=== PATIENT | female | born 1940 | race Caucasian/White ===

== ENCOUNTER 2018-03-13 06:07 | Inpatient (IN) ==
--- NOTE | 2018-03-13 06:32 | ED ---
HPI General Chief Complaint: Shortness of Breath/Dyspnea Stated Complaint: SOB Time Seen by Provider: 03/13/18 06:27 Source: patient and EMS Mode of arrival: EMS History of Present Illness Patient has a history of COPD she is on home oxygen she also has HFA's at home she is also been not taking her medications which she reports COPD and she also does not have any syringes she give herself vitamin B IM shots which she gives herself . She comes in respiratory distress the setting increased work of respiration diffuse wheeze. Progressively getting worse over the last few days not responding to her home HFA inhalers. pt has a slight strange affect and is smiling through her entire HPI ROS Complaint: shortness of breath Onset (ago): day(s) Related Data Home Medications Medication Instructions Recorded Confirmed cyanocobalamin (vitamin B-12) 1,000 mcg IM Q1-3M 03/13/18 03/13/18 diltiazem HCl 30 mg PO QID 03/13/18 03/13/18 esomeprazole magnesium [Nexium] 40 mg PO DAILY 03/13/18 03/13/18 triamterene-hydrochlorothiazid 1 cap PO DAILY 03/13/18 03/13/18 Previous Rx's Medication Instructions Recorded ferrous sulfate [Iron (ferrous 325 mg PO BID 30 Days #60 tab 03/17/18 sulfate)] sennosides-docusate sodium [Colace 1 tab PO DAILY 30 Days tab 03/17/18 2-In-1] Allergies Allergy/AdvReac Type Severity Reaction Status Date / Time Sulfa (Sulfonamide AdvReac Intermediate Nausea/Vomi Verified 03/13/18 06:11 Antibiotics) ting Review of Systems ROS: all other systems reviewed are negative Respiratory Reports dyspnea and Reports wheezing [facility] Medical History Medical History Age related osteoporosis (Acute) COPD (chronic obstructive pulmonary disease) (Acute) GERD (gastroesophageal reflux disease) (Acute) Hypertension (Acute) Surgical History Surgical History Hx of tubal ligation (Acute) Family History Family History Father Diabetes Coronary artery disease Mother Coronary artery disease Social History Social History Substance History: No History of Abuse Second Hand Smoke Exposure: No Smoking Status: Current every day smoker Tobacco Type: Cigarettes How Often Do You Have a Drink Containing Alcohol: Never Recent Travel in [facility] within the Last 8 Weeks: No Recent Out of Country Travel within the Last 8 Weeks: No Immunization History Tetanus Immunization: Unsure Hx Influenza Vaccine This Season: No Exam Narrative Exam Narrative: GENERAL: Patient is mildly in respiratory distress although she is very pleasant and smiling SKIN: Warm and dry. HEAD: Atraumatic. Normocephalic. EYES: Pupils equal and round. No scleral icterus. No injection or drainage. ENT: No nasal bleeding or discharge. Mucous membranes pink and moist. NECK: Trachea midline. No JVD. CARDIOVASCULAR: Regular rate and rhythm. RESPIRATORY: No accessory muscle use. Diffuse wheeze in both lungs bilaterally expiratory bilaterally. GASTROINTESTINAL: Abdomen soft, non-tender, nondistended. Hepatic and splenic margins not palpable. MUSCULOSKELETAL: Extremities without clubbing, cyanosis, or edema. No obvious deformities. NEUROLOGICAL: Awake and alert. No obvious cranial nerve deficits. Motor grossly within normal limits. Five out of 5 muscle strength in the arms and legs. Normal speech. PSYCHIATRIC: Appropriate mood and affect; insight and judgment normal. Course Initial Documented Vital Signs Temperature 98.4 F 03/13/18 06:11 Pulse Rate 97 H 03/13/18 06:11 Respiratory Rate 20 03/13/18 06:11 Blood Pressure 149/70 H 03/13/18 06:11 Pulse Oximetry 100 03/13/18 06:11 Last Documented Vital Signs Temperature 97.7 F 03/17/18 11:00 Pulse Rate 70 03/17/18 13:00 Respiratory Rate 22 03/17/18 11:00 Blood Pressure 162/78 H 03/17/18 11:00 Pulse Oximetry 97 03/17/18 11:00 Critical Care Time Critical Care Time: Yes Total Critical Care Time: 35 Attestation: Aggregate critical care time was 35 minutes. Time to perform other separately billable procedures was not included in the critical care time. My time did not include minutes spent treating any other patients simultaneously or on activities that did not directly contribute to the patient's treatment. The services I, Dr. Santos, provided to this patient were to treat and/or prevent clinically significant deterioration that could result in: cardiac arrest, respiratory failure,increased morbidity. I provided critical care services requiring my management, as noted below: Chart data review, documentation time, medication orders and management, vital sign assessments/reviewing monitor data, ordering and reviewing lab tests, ordering and interpreting/reviewing x-rays and diagnostic studies, care of the patient and discussion of the patient with the admitting physicians. Medical Decision Making MDM Narrative Medical decision making narrative: 0722: Received sign out from Dr. Gomez. Patient resting in stretcher, states that she is breathing better with breathing treatments. No chest pain, lung exam-no wheezing. Awaiting lab and CXR results. CXR: Slight cardiomegaly not significantly changed. ECG: SR, rate 79, normal axis and intervals, STD in V4-V6, TWI aVL, V1, V2. Rectal: Brown stool, trace + hemoccult, patient reports having black stools for approx 1 week. She will be admitted and transfused. Troponin elevated, Hgb/HCT decreased. Troponemia likely 2/2 anemia. Admit team will trend troponin. Differential Diagnosis Differential Diagnosis: Colitis versus COPD exacerbation versus pneumonia versus pneumothorax versus mucus plugging versus bronchiectasis versus other Lab Data Result diagrams: 03/17/18 05:07 03/17/18 05:07 Lab Results 03/13/18 03/13/18 03/13/18 Range/Units 07:07 07:07 07:07 WBC 9.7 (4.0-11.0) th/mm3 RBC 3.26 L (4.00-5.30) mil/mm3 Hgb 5.3 L* (11.6-15.3) gm/dL Hct 18.9 L* (35.0-46.0) % MCV 57.9 L (80.0-100.0) fL MCH 16.2 L (27.0-34.0) pg MCHC 27.9 L (32.0-36.0) % RDW 21.1 H (11.6-17.2) % Plt Count 316 (150-450) th/mm3 MPV 8.9 (7.0-11.0) fL Prelim Diff (Auto) Neut % (Auto) 79.2 H (16.0-70.0) % Lymph % (Auto) 9.8 (9.0-44.0) % [place] % (Auto) 7.2 (0.0-8.0) % Eos % (Auto) 2.4 (0.0-4.0) % Baso % (Auto) 1.4 (0.0-2.0) % Neut # (Auto) 7.7 (1.8-7.7) th/mm3 Lymph # (Auto) 0.9 L (1.0-4.8) th/mm3 [place] # (Auto) 0.7 (0.0-0.9) th/mm3 Eos # (Auto) 0.2 (0.0-0.4) th/mm3 Baso # (Auto) 0.1 (0.0-0.2) th/mm3 WBC Differential . Diff Scan Differential Comment Auto diff final Platelet Estimate (Normal) Platelet Morphology (Normal) Dimorphic RBCs (None) Basophilic Stippling (None) Ovalocytes (None) Acanthocytes (Spur) (None) Sodium 144 (136-145) meq/L Potassium 3.7 (3.5-5.1) meq/L Chloride 113 H (98-107) meq/L Carbon Dioxide 23.0 (21.0-32.0) meq/L Anion Gap 8 (5-15) meq/L BUN 15 (7-18) mg/dL Creatinine 0.63 (0.50-1.00) mg/dL Estimated GFR Greater than 89 (>89) mL/min Random Glucose 106 (74-106) mg/dL Calcium 7.8 L (8.5-10.1) mg/dL Phosphorus (2.5-4.9) mg/dL Magnesium (1.5-2.5) mg/dL Iron (50-170) mcg/dL TIBC (250-450) mcg/dL % Saturation (20-50) % Ferritin (8-252) ng/mL Total Bilirubin 0.2 (0.2-1.0) mg/dL AST 15 (15-37) U/L ALT 11 (10-53) U/L Alkaline Phosphatase 88 (45-117) U/L Total Creatine Kinase (26-192) U/L Troponin I 0.37 H (0.02-0.05) ng/mL B-Natriuretic Peptide 813 H (0-100) pg/mL Total Protein 6.1 L (6.4-8.2) g/dL Albumin 2.7 L (3.4-5.0) g/dL Blood Type Blood Type Recheck Antibody Screen MTS Gel Crossmatch 03/13/18 03/13/18 03/13/18 Range/Units 07:07 07:07 08:12 WBC (4.0-11.0) th/mm3 RBC (4.00-5.30) mil/mm3 Hgb (11.6-15.3) gm/dL Hct (35.0-46.0) % MCV (80.0-100.0) fL MCH (27.0-34.0) pg MCHC (32.0-36.0) % RDW (11.6-17.2) % Plt Count (150-450) th/mm3 MPV (7.0-11.0) fL Prelim Diff (Auto) Neut % (Auto) (16.0-70.0) % Lymph % (Auto) (9.0-44.0) % [place] % (Auto) (0.0-8.0) % Eos % (Auto) (0.0-4.0) % Baso % (Auto) (0.0-2.0) % Neut # (Auto) (1.8-7.7) th/mm3 Lymph # (Auto) (1.0-4.8) th/mm3 [place] # (Auto) (0.0-0.9) th/mm3 Eos # (Auto) (0.0-0.4) th/mm3 Baso # (Auto) (0.0-0.2) th/mm3 WBC Differential Diff Scan Differential Comment Platelet Estimate (Normal) Platelet Morphology (Normal) Dimorphic RBCs (None) Basophilic Stippling (None) Ovalocytes (None) Acanthocytes (Spur) (None) Sodium (136-145) meq/L Potassium (3.5-5.1) meq/L Chloride (98-107) meq/L Carbon Dioxide (21.0-32.0) meq/L Anion Gap (5-15) meq/L BUN (7-18) mg/dL Creatinine (0.50-1.00) mg/dL Estimated GFR (>89) mL/min Random Glucose (74-106) mg/dL Calcium (8.5-10.1) mg/dL Phosphorus (2.5-4.9) mg/dL Magnesium (1.5-2.5) mg/dL Iron (50-170) mcg/dL TIBC (250-450) mcg/dL % Saturation (20-50) % Ferritin 2 L (8-252) ng/mL Total Bilirubin (0.2-1.0) mg/dL AST (15-37) U/L ALT (10-53) U/L Alkaline Phosphatase (45-117) U/L Total Creatine Kinase 67 (26-192) U/L Troponin I (0.02-0.05) ng/mL B-Natriuretic Peptide (0-100) pg/mL Total Protein (6.4-8.2) g/dL Albumin (3.4-5.0) g/dL Blood Type O Positive Blood Type Recheck Required Antibody Screen Negative MTS Gel Crossmatch 03/13/18 03/13/18 03/14/18 Range/Units 11:28 14:10 04:42 WBC 11.5 H (4.0-11.0) th/mm3 RBC 4.05 (4.00-5.30) mil/mm3 Hgb 8.3 L D (11.6-15.3) gm/dL Hct 26.6 L (35.0-46.0) % MCV 65.8 L D (80.0-100.0) fL MCH 20.4 L (27.0-34.0) pg MCHC 31.0 L (32.0-36.0) % RDW 31.1 H D (11.6-17.2) % Plt Count 302 (150-450) th/mm3 MPV 8.9 (7.0-11.0) fL Prelim Diff (Auto) Slide review pending Neut % (Auto) 72.9 H (16.0-70.0) % Lymph % (Auto) 15.0 (9.0-44.0) % [place] % (Auto) 8.4 H (0.0-8.0) % Eos % (Auto) 2.9 (0.0-4.0) % Baso % (Auto) 0.8 (0.0-2.0) % Neut # (Auto) 8.4 H (1.8-7.7) th/mm3 Lymph # (Auto) 1.7 (1.0-4.8) th/mm3 [place] # (Auto) 1.0 H (0.0-0.9) th/mm3 Eos # (Auto) 0.3 (0.0-0.4) th/mm3 Baso # (Auto) 0.1 (0.0-0.2) th/mm3 WBC Differential . Diff Scan Auto diff confirmed Differential Comment . Platelet Estimate Normal (Normal) Platelet Morphology Enlarged H (Normal) Dimorphic RBCs Present H (None) Basophilic Stippling Heavy H (None) Ovalocytes (None) Acanthocytes (Spur) (None) Sodium (136-145) meq/L Potassium (3.5-5.1) meq/L Chloride (98-107) meq/L Carbon Dioxide (21.0-32.0) meq/L Anion Gap (5-15) meq/L BUN (7-18) mg/dL Creatinine (0.50-1.00) mg/dL Estimated GFR (>89) mL/min Random Glucose (74-106) mg/dL Calcium (8.5-10.1) mg/dL Phosphorus (2.5-4.9) mg/dL Magnesium (1.5-2.5) mg/dL Iron (50-170) mcg/dL TIBC (250-450) mcg/dL % Saturation (20-50) % Ferritin (8-252) ng/mL Total Bilirubin (0.2-1.0) mg/dL AST (15-37) U/L ALT (10-53) U/L Alkaline Phosphatase (45-117) U/L Total Creatine Kinase 92 (26-192) U/L Troponin I 0.41 H (0.02-0.05) ng/mL B-Natriuretic Peptide (0-100) pg/mL Total Protein (6.4-8.2) g/dL Albumin (3.4-5.0) g/dL Blood Type Blood Type Recheck Antibody Screen MTS Gel Crossmatch See Detail 03/14/18 03/14/18 03/14/18 Range/Units 04:42 14:18 22:09 WBC (4.0-11.0) th/mm3 RBC (4.00-5.30) mil/mm3 Hgb 8.3 L 7.5 L (11.6-15.3) gm/dL Hct (35.0-46.0) % MCV (80.0-100.0) fL MCH (27.0-34.0) pg MCHC (32.0-36.0) % RDW (11.6-17.2) % Plt Count (150-450) th/mm3 MPV (7.0-11.0) fL Prelim Diff (Auto) Neut % (Auto) (16.0-70.0) % Lymph % (Auto) (9.0-44.0) % [place] % (Auto) (0.0-8.0) % Eos % (Auto) (0.0-4.0) % Baso % (Auto) (0.0-2.0) % Neut # (Auto) (1.8-7.7) th/mm3 Lymph # (Auto) (1.0-4.8) th/mm3 [place] # (Auto) (0.0-0.9) th/mm3 Eos # (Auto) (0.0-0.4) th/mm3 Baso # (Auto) (0.0-0.2) th/mm3 WBC Differential Diff Scan Differential Comment Platelet Estimate (Normal) Platelet Morphology (Normal) Dimorphic RBCs (None) Basophilic Stippling (None) Ovalocytes (None) Acanthocytes (Spur) (None) Sodium 139 (136-145) meq/L Potassium 3.9 (3.5-5.1) meq/L Chloride 103 D (98-107) meq/L Carbon Dioxide 30.2 (21.0-32.0) meq/L Anion Gap 6 (5-15) meq/L BUN 14 (7-18) mg/dL Creatinine 0.69 (0.50-1.00) mg/dL Estimated GFR 82 L (>89) mL/min Random Glucose 82 (74-106) mg/dL Calcium 8.5 (8.5-10.1) mg/dL Phosphorus (2.5-4.9) mg/dL Magnesium (1.5-2.5) mg/dL Iron (50-170) mcg/dL TIBC (250-450) mcg/dL % Saturation (20-50) % Ferritin (8-252) ng/mL Total Bilirubin 0.8 (0.2-1.0) mg/dL AST 14 L (15-37) U/L ALT 14 (10-53) U/L Alkaline Phosphatase 81 (45-117) U/L Total Creatine Kinase (26-192) U/L Troponin I (0.02-0.05) ng/mL B-Natriuretic Peptide (0-100) pg/mL Total Protein 6.2 L (6.4-8.2) g/dL Albumin 2.8 L (3.4-5.0) g/dL Blood Type Blood Type Recheck Antibody Screen MTS Gel Crossmatch 03/15/18 03/15/18 03/15/18 Range/Units 02:12 11:51 12:09 WBC (4.0-11.0) th/mm3 RBC (4.00-5.30) mil/mm3 Hgb 7.6 L 8.4 L (11.6-15.3) gm/dL Hct (35.0-46.0) % MCV (80.0-100.0) fL MCH (27.0-34.0) pg MCHC (32.0-36.0) % RDW (11.6-17.2) % Plt Count (150-450) th/mm3 MPV (7.0-11.0) fL Prelim Diff (Auto) Neut % (Auto) (16.0-70.0) % Lymph % (Auto) (9.0-44.0) % [place] % (Auto) (0.0-8.0) % Eos % (Auto) (0.0-4.0) % Baso % (Auto) (0.0-2.0) % Neut # (Auto) (1.8-7.7) th/mm3 Lymph # (Auto) (1.0-4.8) th/mm3 [place] # (Auto) (0.0-0.9) th/mm3 Eos # (Auto) (0.0-0.4) th/mm3 Baso # (Auto) (0.0-0.2) th/mm3 WBC Differential Diff Scan Differential Comment Platelet Estimate (Normal) Platelet Morphology (Normal) Dimorphic RBCs (None) Basophilic Stippling (None) Ovalocytes (None) Acanthocytes (Spur) (None) Sodium (136-145) meq/L Potassium (3.5-5.1) meq/L Chloride (98-107) meq/L Carbon Dioxide (21.0-32.0) meq/L Anion Gap (5-15) meq/L BUN (7-18) mg/dL Creatinine (0.50-1.00) mg/dL Estimated GFR (>89) mL/min Random Glucose (74-106) mg/dL Calcium (8.5-10.1) mg/dL Phosphorus (2.5-4.9) mg/dL Magnesium (1.5-2.5) mg/dL Iron (50-170) mcg/dL TIBC (250-450) mcg/dL % Saturation (20-50) % Ferritin (8-252) ng/mL Total Bilirubin (0.2-1.0) mg/dL AST (15-37) U/L ALT (10-53) U/L Alkaline Phosphatase (45-117) U/L Total Creatine Kinase (26-192) U/L Troponin I (0.02-0.05) ng/mL B-Natriuretic Peptide (0-100) pg/mL Total Protein (6.4-8.2) g/dL Albumin (3.4-5.0) g/dL Blood Type Blood Type Recheck Antibody Screen MTS Gel Crossmatch See Detail 03/16/18 03/16/18 03/17/18 Range/Units 05:44 05:44 05:07 WBC 7.9 6.8 (4.0-11.0) th/mm3 RBC 4.35 4.29 (4.00-5.30) mil/mm3 Hgb 9.7 L 9.6 L (11.6-15.3) gm/dL Hct 30.7 L 30.6 L (35.0-46.0) % MCV 70.6 L D 71.4 L (80.0-100.0) fL MCH 22.2 L 22.3 L (27.0-34.0) pg MCHC 31.5 L 31.2 L (32.0-36.0) % RDW 33.0 H 33.8 H (11.6-17.2) % Plt Count 255 296 (150-450) th/mm3 MPV 8.9 9.4 (7.0-11.0) fL Prelim Diff (Auto) Slide review pending Slide review pending Neut % (Auto) 66.6 60.0 (16.0-70.0) % Lymph % (Auto) 17.1 22.1 (9.0-44.0) % [place] % (Auto) 9.7 H 10.7 H (0.0-8.0) % Eos % (Auto) 5.7 H 5.6 H (0.0-4.0) % Baso % (Auto) 0.9 1.6 (0.0-2.0) % Neut # (Auto) 5.3 4.1 (1.8-7.7) th/mm3 Lymph # (Auto) 1.4 1.5 (1.0-4.8) th/mm3 [place] # (Auto) 0.8 0.7 (0.0-0.9) th/mm3 Eos # (Auto) 0.5 H 0.4 (0.0-0.4) th/mm3 Baso # (Auto) 0.1 0.1 (0.0-0.2) th/mm3 WBC Differential . . Diff Scan Auto diff confirmed Auto diff confirmed Differential Comment . . Platelet Estimate Normal Normal (Normal) Platelet Morphology Enlarged H Enlarged H (Normal) Dimorphic RBCs Present H (None) Basophilic Stippling (None) Ovalocytes 1+ H 1+ H (None) Acanthocytes (Spur) Occ H Occ H (None) Sodium 141 (136-145) meq/L Potassium 3.8 (3.5-5.1) meq/L Chloride 102 (98-107) meq/L Carbon Dioxide 31.8 (21.0-32.0) meq/L Anion Gap 7 (5-15) meq/L BUN 12 (7-18) mg/dL Creatinine 0.59 (0.50-1.00) mg/dL Estimated GFR Greater than 89 (>89) mL/min Random Glucose 68 L (74-106) mg/dL Calcium 8.2 L (8.5-10.1) mg/dL Phosphorus 3.2 (2.5-4.9) mg/dL Magnesium 2.0 (1.5-2.5) mg/dL Iron (50-170) mcg/dL TIBC (250-450) mcg/dL % Saturation (20-50) % Ferritin (8-252) ng/mL Total Bilirubin (0.2-1.0) mg/dL AST (15-37) U/L ALT (10-53) U/L Alkaline Phosphatase (45-117) U/L Total Creatine Kinase (26-192) U/L Troponin I (0.02-0.05) ng/mL B-Natriuretic Peptide (0-100) pg/mL Total Protein (6.4-8.2) g/dL Albumin 2.8 L (3.4-5.0) g/dL Blood Type Blood Type Recheck Antibody Screen MTS Gel Crossmatch 03/17/18 03/17/18 Range/Units 05:07 05:09 WBC (4.0-11.0) th/mm3 RBC (4.00-5.30) mil/mm3 Hgb (11.6-15.3) gm/dL Hct (35.0-46.0) % MCV (80.0-100.0) fL MCH (27.0-34.0) pg MCHC (32.0-36.0) % RDW (11.6-17.2) % Plt Count (150-450) th/mm3 MPV (7.0-11.0) fL Prelim Diff (Auto) Neut % (Auto) (16.0-70.0) % Lymph % (Auto) (9.0-44.0) % [place] % (Auto) (0.0-8.0) % Eos % (Auto) (0.0-4.0) % Baso % (Auto) (0.0-2.0) % Neut # (Auto) (1.8-7.7) th/mm3 Lymph # (Auto) (1.0-4.8) th/mm3 [place] # (Auto) (0.0-0.9) th/mm3 Eos # (Auto) (0.0-0.4) th/mm3 Baso # (Auto) (0.0-0.2) th/mm3 WBC Differential Diff Scan Differential Comment Platelet Estimate (Normal) Platelet Morphology (Normal) Dimorphic RBCs (None) Basophilic Stippling (None) Ovalocytes (None) Acanthocytes (Spur) (None) Sodium 141 (136-145) meq/L Potassium 4.0 (3.5-5.1) meq/L Chloride 103 (98-107) meq/L Carbon Dioxide 30.3 (21.0-32.0) meq/L Anion Gap 8 (5-15) meq/L BUN 14 (7-18) mg/dL Creatinine 0.84 (0.50-1.00) mg/dL Estimated GFR 66 L (>89) mL/min Random Glucose 75 (74-106) mg/dL Calcium 8.3 L (8.5-10.1) mg/dL Phosphorus 3.5 (2.5-4.9) mg/dL Magnesium 1.9 (1.5-2.5) mg/dL Iron 23 L (50-170) mcg/dL TIBC 370 (250-450) mcg/dL % Saturation 6.2 L (20-50) % Ferritin 29 (8-252) ng/mL Total Bilirubin (0.2-1.0) mg/dL AST (15-37) U/L ALT (10-53) U/L Alkaline Phosphatase (45-117) U/L Total Creatine Kinase (26-192) U/L Troponin I (0.02-0.05) ng/mL B-Natriuretic Peptide (0-100) pg/mL Total Protein (6.4-8.2) g/dL Albumin 2.9 L (3.4-5.0) g/dL Blood Type Blood Type Recheck Antibody Screen MTS Gel Crossmatch Imaging Data Radiologist's impression: Chest X-Ray 03/13/18 06:41 CONCLUSION: Slight cardiomegaly not significantly changed. Abdomen/Pelvis CT 03/15/18 00:00 CONCLUSION: 1. There is pleural thickening in both lung bases. 2. Scattered diverticula along the descending and sigmoid colon without inflammatory changes. 3. Otherwise, unremarkable exam for patient's age. Discharge Plan Discharge Disposition Patient Disposition: 30 Still Patient Discharge Condition Condition: Fair Discharge Order Discharge Orders: Discharge Order (Routine); Ordered 03/17/18 Ordered By: Dax Anguiano Discharge Details Anticipated Discharge Date: 03/17/18 Discharge Comment: Okay to discharge home after iron infusion. Diagnosis: Acute exacerbation of chronic obstructive airways disease, Anemia, Elevated troponin Physicians Team ED Provider: Graham Gomez Primary Care Provider: Rodney Dawn Attending Provider: Dax Anguiano Other Providers: Naidne Noriega ; [facility],Insurance Status ED Status: Left Department Discharge Information Discharge Date/Time: 03/13/18 16:00
--- NOTE | 2018-03-13 07:14 | XR ---
EXAM DATE: 03/13/2018 7:04 AM EDT AGE/SEX: 77 years / Female INDICATIONS: Patient presents with shortness of breath and history of COPD but continues to smoke. CLINICAL DATA: This is the patient's initial encounter. Patient reports that signs and symptoms have been present for 2 days and indicates a pain score of 5/10. MEDICAL/SURGICAL HISTORY: Chronic obstructive pulmonary disease. None. COMPARISON: [facility] [place], CHEST SINGLE AP, 09/24/2010. . FINDINGS: The lungs are clear without infiltrate, nodule, or mass. There is no appreciable pleural effusion for technique. Slight cardiomegaly has not changed. Chronic vascular atherosclerotic calcifi cations are seen involving the aorta. CONCLUSION: Slight cardiomegaly not significantly changed. Electronically signed by: Joann Borrego MD 03/13/2018 7:12 AM EDT
[2018-03-13 07:43] LABS: Baso # (Auto) 0.1 th/mm3 (0.0-0.2); Baso % (Auto) 1.4 % (0.0-2.0); Eos # (Auto) 0.2 th/mm3 (0.0-0.4); Eos % (Auto) 2.4 % (0.0-4.0); Lymph # (Auto) 0.9 th/mm3 (1.0-4.8); Lymph % (Auto) 9.8 % (9.0-44.0); Mean Corpuscular Hemoglobin 16.2 pg (27.0-34.0); Mean Corpuscular Volume 57.9 fL (80.0-100.0); Mean Platelet Volume 8.9 fL (7.0-11.0); Mono # (Auto) 0.7 th/mm3 (0.0-0.9); Mono % (Auto) 7.2 % (0.0-8.0); Neut # (Auto) 7.7 th/mm3 (1.8-7.7); Neut % (Auto) 79.2 % (16.0-70.0); Platelet Count 316 th/mm3 (150-450); Red Blood Count 3.26 mil/mm3 (4.00-5.30); Red Cell Distribution Width 21.1 % (11.6-17.2); White Blood Count 9.7 th/mm3 (4.0-11.0)
[2018-03-13 07:45] LABS: Mean Corpuscular HGB Conc 27.9 % (32.0-36.0)
[2018-03-13 07:48] LABS: Hematocrit 18.9 % (35.0-46.0); Hemoglobin 5.3 gm/dL (11.6-15.3)
[2018-03-13 07:51] LABS: Albumin 2.7 g/dL (3.4-5.0); Anion Gap 8 meq/L (5-15); Aspartate Aminotransferase 15 U/L (15-37); Blood Urea Nitrogen 15 mg/dL (7-18); Calcium 7.8 mg/dL (8.5-10.1); Chloride 113 meq/L (98-107); Glomerular Filtration Rate Greater Than 89 mL/min (>89); Glucose,Random 106 mg/dL (74-106); Potassium 3.7 meq/L (3.5-5.1); Sodium 144 meq/L (136-145)
[2018-03-13 07:52] LABS: Alanine Aminotransferase 11 U/L (10-53)
[2018-03-13 07:56] LABS: Alkaline Phosphatase 88 U/L (45-117); Total Protein 6.1 g/dL (6.4-8.2); Troponin I 0.37 ng/mL (0.02-0.05)
--- NOTE | 2018-03-13 08:53 | P.HPIM ---
History of Present Illness Primary Care Physician: Rodney Dawn MD, R2 History of Present Illness: Mrs. Laura is a 77-year-old female. She has a history of COPD at baseline. She came to the hospital secondary to shortness of breath. Etiology was initially suspected to be COPD exacerbation. However she was found to have a hemoglobin of 5.4. This may be the primary cause of her shortness of breath. Troponin is slightly elevated but this could also be related to anemia. Her reports stools have tested positive for blood. Patient cannot recall any prior history of GI bleed. She does not complain of any abdominal pain. No other complaints at this time. - Diagnosis (1) GI bleed (2) Acute exacerbation of chronic obstructive airways disease (3) Anemia (4) Elevated troponin Review of Systems Constitutional: Denies fatigue, Denies fever(s), Denies night sweats, Denies weakness Eyes: Denies blind spots, Denies blurry vision, Denies change in vision, Denies double vision Ears, Nose, Mouth, and Throat: Denies abnormal hearing, Denies bleeding gums Cardiovascular: Denies chest pain, Denies chest pain at rest, Denies chest pain with activity Respiratory: Reports shortness of breath, Reports shortness of breath with activity, Denies cough, Denies wheezing Gastrointestinal: Denies abdominal pain, Denies black, tarry stools, Denies bright, red blood in stools Musculoskeletal: Denies abnormal walking, Denies back pain, Denies body aches, Denies deformity Skin/Breast: Denies rash, Denies skin pain, Denies skin ulcer Neurologic: Denies abnormal hearing, Denies abnormal movements, Denies abnormal speech, Denies abnormal walking [facility] - History History Provided By: Patient - Medical History Medical History: Medical History (Last Updated 03/13/18 @ 06:16 by Cary Gabriel) Age related osteoporosis COPD (chronic obstructive pulmonary disease) GERD (gastroesophageal reflux disease) Hypertension - Surgical History Surgical History: Surgical History (Last Updated 03/13/18 @ 12:10 by Joey Stubbs MD) Hx of tubal ligation - Family History Family History: Family History (Last Updated 03/13/18 @ 12:11 by Joey Stubbs MD) Father Diabetes Coronary artery disease Mother Coronary artery disease - Tobacco History Second Hand Smoke Exposure: Yes Tobacco Use In Past 30 Days: Yes Smoking Status: Current every day smoker Tobacco Type: Cigarettes - Alcohol History How Often Do You Have a Drink Containing Alcohol: Never - Substance Use History Substance History: No History of Abuse - Travel History Recent Travel in the [place] Within the Last 8 Weeks: No Recent Travel Out of the Country Within the Last 8 Weeks: No - Immunization History Tetanus Immunization: Unsure Hx Influenza Vaccine This Season: No Medications and Allergies Active Medications: Active Medications Al Hydroxide/Mg Hydroxide (Milk Of Magnsylvie Liq) 30 ml PO Q12H PRN PRN Reason: Mild Constipation Albuterol (Duoneb Neb (Prn)) 1 ampul NEB Q4HR NEB PRN PRN Reason: SHORTNESS OF BREATH Diltiazem HCl (Cardizem) 30 mg PO QID [facility] Sodium Chloride (Ns Inj) 250 mls @ 15 mls/hr IV.SIG ONCE ELAINE Stop: 03/14/18 01:39 Non-Formulary Medication (Cyanocobalamin (Vitamin B-12) [Cyanocobalamin ( Vitamin B-12)]) 1,000 mcg IM Q1-3M [facility] Non-Formulary Medication (Esomeprazole Magnesium [Nexium]) 40 mg PO DAILY [facility] Ondansetron HCl (Zofran Inj) 4 mg IV.PUSH Q6H PRN PRN Reason: NAUSEA OR VOMITING Triamterene/HCTZ (Dyazide 37.5/25 Mg) 1 cap PO DAILY [facility] Allergies Allergy/AdvReac Type Severity Reaction Status Date / Time Sulfa (Sulfonamide AdvReac Intermediate Nausea/Vomi Verified 03/13/18 06:11 Antibiotics) ting Home Medications Medication Instructions Recorded Confirmed Type aspirin [Aspirin Low Dose] 81 mg PO DAILY 03/13/18 03/13/18 History cyanocobalamin (vitamin B-12) 1,000 mcg IM Q1-3M 03/13/18 03/13/18 History diltiazem HCl 30 mg PO QID 03/13/18 03/13/18 History esomeprazole magnesium [Nexium] 40 mg PO DAILY 03/13/18 03/13/18 History triamterene-hydrochlorothiazid 1 cap PO DAILY 03/13/18 03/13/18 History Exam Vital signs: Vital Signs 03/13/18 06:11 03/13/18 06:35 03/13/18 06:45 Temperature 98.4 F Pulse Rate 97 H 89 Respiratory Rate 20 18 Blood Pressure 149/70 H Pulse Oximetry 100 97 03/13/18 07:10 Temperature Pulse Rate 82 Respiratory Rate 17 Blood Pressure 137/55 L Pulse Oximetry 100 Intake & Output 03/12/18 03/13/18 03/13/18 18:59 06:59 18:59 Weight 68.039 kg Narrative: GENERAL: NAD, A&Ox3 HEAD: Normocephalic. NECK: Supple, trachea midline. No lymphadenopathy. EYES: No scleral icterus. No injection or drainage. CARDIOVASCULAR: Regular rate and rhythm without murmurs, gallops, or rubs. RESPIRATORY: Breath sounds equal bilaterally. No accessory muscle use. GASTROINTESTINAL: Abdomen soft, non-tender, nondistended. MUSCULOSKELETAL: No cyanosis, or edema. SKIN: Warm and dry. NEURO: No focal neurological deficits. Results - Labs CBC & Chem 7: 03/13/18 07:07 03/13/18 07:07 Labs: Short CBC 03/13/18 Range/Units 07:07 WBC 9.7 (4.0-11.0) th/mm3 Hgb 5.3 L* (11.6-15.3) gm/dL Hct 18.9 L* (35.0-46.0) % Plt Count 316 (150-450) th/mm3 BMP 03/13/18 07:07 Sodium 144 Potassium 3.7 Chloride 113 H Carbon Dioxide 23.0 BUN 15 Creatinine 0.63 Calcium 7.8 L Cardiac Enzymes 03/13/18 03/13/18 Range/Units 07:07 07:07 Total Creatine Kinase 67 (26-192) U/L Troponin I 0.37 H (0.02-0.05) ng/mL Liver Function 03/13/18 Range/Units 07:07 Total Bilirubin 0.2 (0.2-1.0) mg/dL AST 15 (15-37) U/L ALT 11 (10-53) U/L Alkaline Phosphatase 88 (45-117) U/L Albumin 2.7 L (3.4-5.0) g/dL - Imaging Impressions Chest X-Ray 03/13/18 06:41 CONCLUSION: Slight cardiomegaly not significantly changed. Caprini VTE Risk Assessment Caprini VTE Risk Assessment: No/Low Risk (score <= 1) Caprini Risk Assessment Model: Point Value = 1 Point Value = 2 Point Value = 3 Point Value = 5 Age 41-60 Minor surgery BMI > 25 kg/m2 Swollen legs Varicose veins or History of unexplained or recurrent spontaneous Oral contraceptives or hormone replacement Sepsis (< 1 month) Serious lung disease, including pneumonia (< 1 month) Abnormal pulmonary function Acute myocardial infarction Congestive heart failure (< 1 month) History of inflammatory bowel disease Medical patient at bed rest Age 61-74 Arthroscopic surgery Major open surgery (> 45 min) Laparoscopic surgery (> 45 min) Malignancy Confined to bed (> 72 hours) Immobilizing plaster cast Central venous access Age >= 75 History of VTE Family history of VTE Factor V Leiden Prothrombin [id number] Lupus anticoagulant Anticardiolipin antibodies Elevated serum homocysteine Heparin-induced thrombocytopenia Other congenital or acquired thrombophilia Stroke (< 1 month) Elective arthroplasty Hip, pelvis, or leg fracture Acute spinal cord injury (< 1 month) Prophylaxis Regimen: Total Risk Factor Score Risk Level Prophylaxis Regimen 0-1 Low Early ambulation 2 Moderate Order ONE of the following: *Sequential Compression Device (SCD) *Heparin 5000 units SQ BID 3-4 Higher Order ONE of the following medications: *Heparin 5000 units SQ TID *Enoxaparin/Lovenox 40 mg SQ daily (WT < 150 kg, CrCl > 30 mL/min) *Enoxaparin/Lovenox 30 mg SQ daily (WT < 150 kg, CrCl > 10-29 mL/min) *Enoxaparin/Lovenox 30 mg SQ BID (WT < 150 kg, CrCl > 30 mL/min) AND/OR *Sequential Compression Device (SCD) 5 or more Highest Order ONE of the following medications: *Heparin 5000 units SQ TID (Preferred with Epidurals) *Enoxaparin/Lovenox 40 mg SQ daily (WT < 150 kg, CrCl > 30 mL/min) *Enoxaparin/Lovenox 30 mg SQ daily (WT < 150 kg, CrCl > 10-29 mL/min) *Enoxaparin/Lovenox 30 mg SQ BID (WT < 150 kg, CrCl > 30 mL/min) AND *Sequential Compression Device (SCD) Assessment and Plan - Assessment (1) GI bleed Code(s): K92.2 - Gastrointestinal hemorrhage, unspecified Status: Acute (2) Acute exacerbation of chronic obstructive airways disease Code(s): J44.1 - Chronic obstructive pulmonary disease with (acute) exacerbation Status: Acute (3) Anemia Code(s): D64.9 - Anemia, unspecified Status: Acute (4) Elevated troponin Code(s): R74.8 - Abnormal levels of other serum enzymes Status: Acute - Plan 77-year-old female admitted secondary to hypoxia, COPD exacerbation, elevated troponin, acute blood loss anemia, and GI bleed GI bleed Acute blood loss anemia By history this is likely a slow bleed consult GI Clear liquids 2 units packed red blood cells ordered for transfusion on 03/13/2018 COPD exacerbation Hypoxia Etiology for her exacerbation is likely correlated to anemia Duo nebs as needed Oxygen as needed Avoid steroids due to risk of ulcer Elevated troponin May be secondary to degree of anemia Follow troponins Follow serial EKGs No cardiac symptoms Blood transfusion as above Consider cardiology consult for any upper transient troponin or cardiac symptoms Hypertension Continue baseline treatment Follow blood pressures Adjust treatments as needed Gastroesophageal reflux disease Osteoporosis No change to baseline treatments Follow clinically DVT prophylaxis SCDs (3) Anemia Qualifiers: Anemia type: unspecified type Qualified Code(s): D64.9 - Anemia, unspecified
[2018-03-13] MEDS ORDERED: Sodium Chlor 0.9% Inj 250 ML IV.SIG SCH ×2 (09:00→12:00)
[2018-03-13] MEDS: dilTIAZem 30 MG Tablet PO SCH ×4 (10:59→21:07)
--- NOTE | 2018-03-13 14:29 | ECG ---
Date Performed: 03/13/2018 Time Performed: 07:42:49 PTAGE: 77 years EKG: Sinus rhythm MODERATE ST DEPRESSION ABNORMAL ECG Since the PREVIOUS TRACING , no significant change noted PREVIOUS TRACIN09/09/2013 20.08 DOCTOR: Chevy Judge Interpretating Date/Time 03/13/2018 14:28:07
[2018-03-13 15:03] LABS: Troponin I 0.41 ng/mL (0.02-0.05)
--- NOTE | 2018-03-14 08:47 | ECG ---
Date Performed: 03/13/2018 Time Performed: 15:21:39 PTAGE: 77 years EKG: Sinus rhythm MODERATE ST DEPRESSION ABNORMAL ECG PREVIOUS TRACING : 03/13/2018 07.42 DOCTOR: David Urbina Interpretating Date/Time 03/14/2018 08:46:45
[2018-03-14] MEDS: dilTIAZem 30 MG Tablet PO SCH ×4 (09:09→20:39)
--- NOTE | 2018-03-14 11:05 | P.CONGI ---
History of Present Illness Consult date: 03/14/18 Consult reason: Gi bleed Chief complaint: SOB History of Present Illness: This is a very pleasant 77-year-old female with history of COPD who presented with shortness of breath. On admission hemoglobin was 5.4. She is s/p 2 unit of blood, no recent labs done. Pt denies previous hx of GI bleed. States she noticed rectal bleed few days ago for few days, which she attributed to hemorrhoids due to forcing herself to go. States she used to be regular but now having constipation, she attributes to medications she is on. No more bleeding for few days now. Endorses gradual wt loss over the past yrs, states she used to weigh 200 lbs, her appetite has been poor. She reports stools have tested positive for blood. States she normally has heart burn once a month, but the heart burn was severe when she came to the hospital. Denies ever having EGD/ colonoscopy before. She takes ASA, no frequent use of NSAIDs. Denies nausea, vomiting, hematemesis, diarrhea or melena. <Mian Wong - Last Filed: 03/15/18 12:55> Review of Systems All other systems reviewed negative except as stated in HPI <Mian Wong - Last Filed: 03/15/18 12:55> PMFSH - Medical History Medical History: Medical History (Last Updated 03/13/18 @ 06:16 by Cary Gabriel) Age related osteoporosis COPD (chronic obstructive pulmonary disease) GERD (gastroesophageal reflux disease) Hypertension - Surgical History Surgical History: Surgical History (Last Updated 03/13/18 @ 12:10 by Joey Stubbs MD) Hx of tubal ligation - Family History Family History: Family History (Last Updated 03/13/18 @ 12:11 by Joey Stubbs MD) Father Diabetes Coronary artery disease Mother Coronary artery disease <Nadine Noriega - Last Filed: 03/14/18 15:10> - History History Provided By: Patient - Medical History Medical History: Medical History (Last Updated 03/13/18 @ 06:16 by Cary Gabriel) Age related osteoporosis COPD (chronic obstructive pulmonary disease) GERD (gastroesophageal reflux disease) Hypertension - Surgical History Surgical History: Surgical History (Last Updated 03/13/18 @ 12:10 by Joey Stubbs MD) Hx of tubal ligation - Family History Family History: Family History (Last Updated 03/13/18 @ 12:11 by Joey Stubbs MD) Father Diabetes Coronary artery disease Mother Coronary artery disease - Tobacco History Second Hand Smoke Exposure: Yes Tobacco Use In Past 30 Days: Yes Smoking Status: Current every day smoker Tobacco Type: Cigarettes - Alcohol History How Often Do You Have a Drink Containing Alcohol: Never - Substance Use History Substance History: No History of Abuse - Travel History Recent Travel in the [place] Within the Last 8 Weeks: No Recent Travel Out of the Country Within the Last 8 Weeks: No - Immunization History Tetanus Immunization: Unsure Hx Influenza Vaccine This Season: No <Mian Wong - Last Filed: 03/15/18 12:55> Medications and Allergies Active Medications: Active Medications Al Hydroxide/Mg Hydroxide (Milk Of Magnesia Liq) 30 ml PO Q12H PRN PRN Reason: Mild Constipation Albuterol (Duoneb Neb (Prn)) 1 ampul NEB Q4HR NEB PRN PRN Reason: SHORTNESS OF BREATH Last Admin: 03/14/18 09:17 Dose: 1 ampul Cyanocobalamin (Vitamin B12 Inj) 1,000 mcg IM Q30D [facility] Last Admin: 03/13/18 11:00 Dose: 1,000 mcg Diltiazem HCl (Cardizem) 30 mg PO QID [facility] Last Admin: 03/14/18 09:09 Dose: 30 mg Ondansetron HCl (Zofran Inj) 4 mg IV.PUSH Q6H PRN PRN Reason: NAUSEA OR VOMITING Pantoprazole Sodium (Protonix) 40 mg PO DAILY [facility] Last Admin: 03/14/18 09:10 Dose: 40 mg Polyethylene Glycol/Electrolytes (Colyte Liq) 4,000 ml PO ONCE ONE Stop: 03/15/18 16:01 Triamterene/HCTZ (Dyazide 37.5/25 Mg) 1 cap PO DAILY [facility] Last Admin: 03/14/18 09:09 Dose: 1 cap <Jono Noriegae - Last Filed: 03/14/18 15:10> Active Medications: Active Medications Al Hydroxide/Mg Hydroxide (Milk Of Magnesia Liq) 30 ml PO Q12H PRN PRN Reason: Mild Constipation Albuterol (Duoneb Neb (Prn)) 1 ampul NEB Q4HR NEB PRN PRN Reason: SHORTNESS OF BREATH Last Admin: 03/14/18 09:17 Dose: 1 ampul Cyanocobalamin (Vitamin B12 Inj) 1,000 mcg IM Q30D [facility] Last Admin: 03/13/18 11:00 Dose: 1,000 mcg Diltiazem HCl (Cardizem) 30 mg PO QID [facility] Last Admin: 03/14/18 09:09 Dose: 30 mg Ondansetron HCl (Zofran Inj) 4 mg IV.PUSH Q6H PRN PRN Reason: NAUSEA OR VOMITING Pantoprazole Sodium (Protonix) 40 mg PO DAILY [facility] Last Admin: 03/14/18 09:10 Dose: 40 mg Triamterene/HCTZ (Dyazide 37.5/25 Mg) 1 cap PO DAILY [facility] Last Admin: 03/14/18 09:09 Dose: 1 cap <Mian Wong - Last Filed: 03/15/18 12:55> Allergies Allergy/AdvReac Type Severity Reaction Status Date / Time Sulfa (Sulfonamide AdvReac Intermediate Nausea/Vomi Verified 03/13/18 06:11 Antibiotics) ting Home Medications Medication Instructions Recorded Confirmed Type aspirin [Aspirin Low Dose] 81 mg PO DAILY 03/13/18 03/13/18 History cyanocobalamin (vitamin B-12) 1,000 mcg IM Q1-3M 03/13/18 03/13/18 History diltiazem HCl 30 mg PO QID 03/13/18 03/13/18 History esomeprazole magnesium [Nexium] 40 mg PO DAILY 03/13/18 03/13/18 History triamterene-hydrochlorothiazid 1 cap PO DAILY 03/13/18 03/13/18 History Exam Vital signs: Vital Signs 03/13/18 16:00 03/13/18 17:00 03/13/18 17:26 Temperature 98.3 F Pulse Rate 89 84 78 Respiratory Rate 30 H Blood Pressure 121/45 L Pulse Oximetry 96 03/13/18 17:42 03/13/18 18:00 03/13/18 18:52 Temperature 98.2 F 98.4 F Pulse Rate 73 84 89 Respiratory Rate 30 H 30 H Blood Pressure 117/51 L 141/89 H Pulse Oximetry 97 89 L 03/13/18 18:53 03/13/18 19:44 03/13/18 19:53 Temperature 97.8 F Pulse Rate 90 Respiratory Rate 21 Blood Pressure 148/70 H Pulse Oximetry 94 L 97 95 03/13/18 20:07 03/14/18 00:00 03/14/18 00:40 Temperature Pulse Rate 97 H 76 92 H Respiratory Rate 24 20 Blood Pressure Pulse Oximetry 97 03/14/18 01:00 03/14/18 02:00 03/14/18 03:00 Temperature Pulse Rate 64 68 63 Respiratory Rate Blood Pressure Pulse Oximetry 03/14/18 04:00 03/14/18 04:10 03/14/18 05:00 Temperature Pulse Rate 66 96 H 70 Respiratory Rate 20 Blood Pressure Pulse Oximetry 03/14/18 06:00 03/14/18 07:15 03/14/18 08:00 Temperature 99 F Pulse Rate 71 75 Respiratory Rate 20 Blood Pressure 115/86 Pulse Oximetry 99 96 03/14/18 09:18 Temperature Pulse Rate 74 Respiratory Rate 22 Blood Pressure Pulse Oximetry Intake & Output 03/13/18 03/14/18 03/14/18 18:59 06:59 18:59 Intake Total 400 / 400 420 / 420 Output Total 0 / 0 1080 / 1080 Balance 400 / 400 -660 / -660 Weight 70.8 kg Intake: Oral 0 / 0 Other 20 / 20 Rbc As-3 Leukoreduced Unit 20 / 20 [id number] Intake (Blood Product) Amt 400 / 400 400 / 400 Rbc As-3 Leukoreduced Unit 400 / 400 [id number] Rbc As-3 Leukoreduced Unit 0 / 0 400 / 400 [id number] Output: Urine 0 / 0 1080 / 1080 Other: Other Intake Source Rbc As-3 Leukoreduced Unit Saline Solution [id number] Date of Last Bowel Movement 03/13/19 03/13/18 <Nadine Noriega - Last Filed: 03/14/18 15:10> Vital signs: Vital Signs 03/13/18 12:52 03/13/18 13:09 03/13/18 16:00 Temperature 98.1 F 98.3 F Pulse Rate 98 H 103 H 89 Respiratory Rate 17 21 Blood Pressure 132/76 155/62 H Pulse Oximetry 94 L 95 03/13/18 17:00 03/13/18 17:26 03/13/18 17:42 Temperature 98.3 F 98.2 F Pulse Rate 84 78 73 Respiratory Rate 30 H 30 H Blood Pressure 121/45 L 117/51 L Pulse Oximetry 96 97 03/13/18 18:00 03/13/18 18:52 03/13/18 18:53 Temperature 98.4 F Pulse Rate 84 89 Respiratory Rate 30 H Blood Pressure 141/89 H Pulse Oximetry 89 L 94 L 03/13/18 19:44 03/13/18 19:53 03/13/18 20:07 Temperature 97.8 F Pulse Rate 90 97 H Respiratory Rate 21 24 Blood Pressure 148/70 H Pulse Oximetry 97 95 97 03/14/18 00:00 03/14/18 00:40 03/14/18 01:00 Temperature Pulse Rate 76 92 H 64 Respiratory Rate 20 Blood Pressure Pulse Oximetry 03/14/18 02:00 03/14/18 03:00 03/14/18 04:00 Temperature Pulse Rate 68 63 66 Respiratory Rate Blood Pressure Pulse Oximetry 03/14/18 04:10 03/14/18 05:00 03/14/18 06:00 Temperature Pulse Rate 96 H 70 71 Respiratory Rate 20 Blood Pressure Pulse Oximetry 03/14/18 07:15 03/14/18 09:18 Temperature Pulse Rate 74 Respiratory Rate 22 Blood Pressure Pulse Oximetry 99 Intake & Output 03/13/18 03/14/18 03/14/18 18:59 06:59 18:59 Intake Total 400 / 400 420 / 420 Output Total 0 / 0 1080 / 1080 Balance 400 / 400 -660 / -660 Weight 70.8 kg Intake: Oral 0 / 0 Other Rbc As-3 Leukoreduced Unit 20 [id number] Intake (Blood Product) Amt 400 / 400 400 / 400 Rbc As-3 Leukoreduced Unit 400 / 400 [id number] Rbc As-3 Leukoreduced Unit 0 / 0 400 / 400 [id number] Output: Urine 0 / 0 1080 / 1080 Other: Other Intake Source Rbc As-3 Leukoreduced Unit Saline Solution [id number] Date of Last Bowel Movement 03/13/19 03/13/18 - Constitutional no acute distress - Routine Respiratory Exam Present: wheezes - Routine Cardiovascular Exam Present: RRR - Routine Abdominal Exam Present: soft, normoactive bowel sounds. Absent: tenderness, distended - Routine Skin Exam Present: intact, dry - Routine Neurological Exam Present: alert, oriented X3 <Mian Wong - Last Filed: 03/15/18 12:55> Results - Labs CBC & Chem 7: 03/14/18 14:18 03/13/18 07:07 Labs: Laboratory Results - last 24 hr 03/13/18 03/13/18 03/14/18 11:28 14:10 14:18 Hgb 8.3 L D Total Creatine Kinase 92 Troponin I 0.41 H MTS Gel Crossmatch See Detail <Nadine Noriega - Last Filed: 03/14/18 15:10> - Labs CBC & Chem 7: 03/15/18 11:51 03/14/18 04:42 Labs: Laboratory Results - last 24 hr 03/13/18 03/13/18 11:28 14:10 Total Creatine Kinase 92 Troponin I 0.41 H MTS Gel Crossmatch See Detail <Mian Wong - Last Filed: 03/15/18 12:55> Assessment and Plan - Attending Attestation seen, examined agree with above <Nadine Noriega - Last Filed: 03/14/18 15:10> - Plan - Profound anemia- On admission hemoglobin was 5.4. She is s/p 2 unit of blood , no recent labs done. Pt denies previous hx of GI bleed. States she noticed rectal bleed few days ago for few days, which she attributed to hemorrhoids due to forcing herself to go. States she used to be regular but now having constipation, she attributes to medications she is on. No more bleeding for few days now. Endorses gradual wt loss over the past yrs, states she used to weigh 200 lbs, her appetite has been poor. She reports stools have tested positive for blood. States she normally has heart burn once a month, but the heart burn was severe when she came to the hospital. Denies ever having EGD/colonoscopy before. She takes ASA, no frequent use of NSAIDs. Denies nausea, vomiting, hematemesis, diarrhea or melena. - Wt loss/poor appetite - Heart burn - Constipation - COPD exacerbation- - history of COPD on O2 at home, per attending Plan: - ABDI - EGD/colonoscopy on Friday pending medical clearance - Clears tomorrow - Golytely tomorrow - NPO Friday night - Monitor hh - Transfuse as needed - Bowel regimen - Cont. protonix - Supportive care - Pt seen and examined by Dr. Noriega and myself and this note is written on her behalf. <Mian Wong - Last Filed: 03/15/18 12:55>
--- NOTE | 2018-03-14 13:29 | P.PNIM ---
Subjective Interval history: Says that shortness of breath has improved. Denies any chest pain. She reports a little nausea but no vomiting. Denies any abdominal pain. No further bowel movements. She does report bowel movement yesterday with bloody. Physical Exam Vital signs: Vital Signs 03/13/18 16:00 03/13/18 17:00 03/13/18 17:26 Temperature 98.3 F Pulse Rate 89 84 78 Respiratory Rate 30 H Blood Pressure 121/45 L Pulse Oximetry 96 03/13/18 17:42 03/13/18 18:00 03/13/18 18:52 Temperature 98.2 F 98.4 F Pulse Rate 73 84 89 Respiratory Rate 30 H 30 H Blood Pressure 117/51 L 141/89 H Pulse Oximetry 97 89 L 03/13/18 18:53 03/13/18 19:44 03/13/18 19:53 Temperature 97.8 F Pulse Rate 90 Respiratory Rate 21 Blood Pressure 148/70 H Pulse Oximetry 94 L 97 95 03/13/18 20:07 03/14/18 00:00 03/14/18 00:40 Temperature Pulse Rate 97 H 76 92 H Respiratory Rate 24 20 Blood Pressure Pulse Oximetry 97 03/14/18 01:00 03/14/18 02:00 03/14/18 03:00 Temperature Pulse Rate 64 68 63 Respiratory Rate Blood Pressure Pulse Oximetry 03/14/18 04:00 03/14/18 04:10 03/14/18 05:00 Temperature Pulse Rate 66 96 H 70 Respiratory Rate 20 Blood Pressure Pulse Oximetry 03/14/18 06:00 03/14/18 07:15 03/14/18 08:00 Temperature 99 F Pulse Rate 71 75 Respiratory Rate 20 Blood Pressure 115/86 Pulse Oximetry 99 96 03/14/18 09:18 Temperature Pulse Rate 74 Respiratory Rate 22 Blood Pressure Pulse Oximetry Intake & Output 03/13/18 03/14/18 03/14/18 18:59 06:59 18:59 Intake Total 400 / 400 420 / 420 Output Total 0 / 0 1080 / 1080 Balance 400 / 400 -660 / -660 Weight 70.8 kg Intake: Oral 0 / 0 Other 20 / 20 Rbc As-3 Leukoreduced Unit 20 / 20 [id number] Intake (Blood Product) Amt 400 / 400 400 / 400 Rbc As-3 Leukoreduced Unit 400 / 400 [id number] Rbc As-3 Leukoreduced Unit 0 / 0 400 / 400 [id number] Output: Urine 0 / 0 1080 / 1080 Other: Other Intake Source Rbc As-3 Leukoreduced Unit Saline Solution [id number] Date of Last Bowel Movement 03/13/19 03/13/18 Narrative: GENERAL: Patient sitting up in chair. Appears comfortable. Alert and oriented 3. SKIN: Warm and dry. HEAD: Normocephalic. EYES: No scleral icterus. No injection or drainage. NECK: Supple, trachea midline. No JVD CARDIOVASCULAR: Regular rate and rhythm without murmurs, gallops, or rubs. RESPIRATORY: Breath sounds equal bilaterally. No accessory muscle use. GASTROINTESTINAL: Abdomen soft, non-tender, nondistended. MUSCULOSKELETAL: No cyanosis, or edema. BACK: Nontender without obvious deformity. No CVA tenderness. Results - Labs CBC & Chem 7: 03/13/18 07:07 03/13/18 07:07 Laboratory Results - last 24 hr 03/13/18 03/13/18 11:28 14:10 Total Creatine Kinase 92 Troponin I 0.41 H MTS Gel Crossmatch See Detail Microbiology 03/13/18 15:36 Stool Stool Occult Blood (AMANDA) - Final Hemoccult positive Assessment and Plan - Assessment (1) GI bleed Code(s): K92.2 - Gastrointestinal hemorrhage, unspecified Status: Acute (2) Acute exacerbation of chronic obstructive airways disease Code(s): J44.1 - Chronic obstructive pulmonary disease with (acute) exacerbation Status: Acute (3) Anemia Code(s): D64.9 - Anemia, unspecified Status: Acute (4) Elevated troponin Code(s): R74.8 - Abnormal levels of other serum enzymes Status: Acute - Plan 77-year-old female admitted secondary to hypoxia, COPD exacerbation, elevated troponin, acute blood loss anemia, and GI bleed //GI bleed //Acute blood loss anemia By history this is likely a slow bleed consult GI Clear liquids 2 units packed red blood cells ordered for transfusion on 03/13/2018 = Patient feels better after 2 units of PRBCs. Recheck hemoglobin every 8 hours. //COPD exacerbation //Hypoxia Etiology for her exacerbation is likely correlated to anemia Duo nebs as needed Oxygen as needed Avoid steroids due to risk of ulcer = Shortness of breath has resolved. This is likely secondary to anemia //Elevated troponin May be secondary to degree of anemia Follow troponins Follow serial EKGs No cardiac symptoms Blood transfusion as above Consider cardiology consult for any upper transient troponin or cardiac symptoms = Repeat EKG. Appears to be no change since 2013. Patient denies chest pain. //Hypertension Continue baseline treatment Follow blood pressures Adjust treatments as needed //Gastroesophageal reflux disease //Osteoporosis No change to baseline treatments Follow clinically //DVT prophylaxis SCDs Discharge Planning: Pending GI clearance. (3) Anemia Qualifiers: Anemia type: unspecified type Qualified Code(s): D64.9 - Anemia, unspecified
[2018-03-14 17:03] LABS: Baso # (Auto) 0.1 th/mm3 (0.0-0.2); Baso % (Auto) 0.8 % (0.0-2.0); Eos # (Auto) 0.3 th/mm3 (0.0-0.4); Eos % (Auto) 2.9 % (0.0-4.0); Hematocrit 26.6 % (35.0-46.0); Hemoglobin 8.3 gm/dL (11.6-15.3); Lymph # (Auto) 1.7 th/mm3 (1.0-4.8); Mean Corpuscular Hemoglobin 20.4 pg (27.0-34.0); Mean Corpuscular Volume 65.8 fL (80.0-100.0); Mean Platelet Volume 8.9 fL (7.0-11.0); Mono % (Auto) 8.4 % (0.0-8.0); Neut # (Auto) 8.4 th/mm3 (1.8-7.7); Neut % (Auto) 72.9 % (16.0-70.0); Platelet Count 302 th/mm3 (150-450); Red Blood Count 4.05 mil/mm3 (4.00-5.30); Red Cell Distribution Width 31.1 % (11.6-17.2); White Blood Count 11.5 th/mm3 (4.0-11.0)
[2018-03-14 17:27] LABS: Alanine Aminotransferase 14 U/L (10-53); Albumin 2.8 g/dL (3.4-5.0); Anion Gap 6 meq/L (5-15); Aspartate Aminotransferase 14 U/L (15-37); Blood Urea Nitrogen 14 mg/dL (7-18); Calcium 8.5 mg/dL (8.5-10.1); Carbon Dioxide 30.2 meq/L (21.0-32.0); Chloride 103 meq/L (98-107); Glomerular Filtration Rate 82 mL/min (>89); Glucose,Random 82 mg/dL (74-106); Potassium 3.9 meq/L (3.5-5.1); Sodium 139 meq/L (136-145)
[2018-03-14 17:28] LABS: Alkaline Phosphatase 81 U/L (45-117); Total Protein 6.2 g/dL (6.4-8.2)
[2018-03-14 17:54] LABS: Basophilic Stippling Heavy; Dimorphic RBC Present
[2018-03-14 17:55] LABS: Platelet Estimate Normal (Normal)
[2018-03-14] MEDS: Acetaminophen 325 MG Tablet PO PRN (18:53)
[2018-03-15] MEDS: dilTIAZem 30 MG Tablet PO SCH ×4 (08:55→21:21)
[2018-03-15] MEDS ORDERED: Diatrizoate Meglum/Diatrizoate Sod Liq 9 ML UDC PO ONE (09:00)
[2018-03-15] MEDS ORDERED: Sodium Chlor 0.9% Inj 250 ML IV.SIG SCH (13:00)
--- NOTE | 2018-03-15 14:15 | P.PNIM ---
Subjective Interval history: Patient says she is feeling all right. Reports another bowel movement with blood today. Denies any chest pain or shortness of breath currently. Physical Exam Vital signs: Vital Signs 03/14/18 15:00 03/14/18 16:00 03/14/18 17:00 Temperature Pulse Rate 68 66 74 Respiratory Rate Blood Pressure Pulse Oximetry 03/14/18 18:00 03/14/18 19:00 03/14/18 19:13 Temperature 98.8 F Pulse Rate 76 74 76 Respiratory Rate 20 Blood Pressure 125/77 Pulse Oximetry 99 03/14/18 19:38 03/14/18 20:00 03/14/18 20:58 Temperature Pulse Rate 77 67 Respiratory Rate 20 Blood Pressure Pulse Oximetry 99 99 03/14/18 21:00 03/14/18 22:00 03/14/18 23:00 Temperature Pulse Rate 64 65 62 Respiratory Rate Blood Pressure Pulse Oximetry 03/15/18 00:00 03/15/18 01:00 03/15/18 02:00 Temperature Pulse Rate 58 L 61 64 Respiratory Rate Blood Pressure Pulse Oximetry 03/15/18 03:00 03/15/18 04:00 03/15/18 05:00 Temperature Pulse Rate 61 60 68 Respiratory Rate Blood Pressure Pulse Oximetry 03/15/18 06:00 03/15/18 07:00 03/15/18 07:41 Temperature 97.8 F Pulse Rate 62 68 Respiratory Rate 20 Blood Pressure 149/65 H Pulse Oximetry 96 98 03/15/18 08:00 03/15/18 09:00 03/15/18 10:00 Temperature Pulse Rate 64 72 70 Respiratory Rate Blood Pressure Pulse Oximetry 99 03/15/18 11:00 03/15/18 11:04 03/15/18 12:39 Temperature 97.8 F 98.4 F Pulse Rate 82 66 69 Respiratory Rate 18 18 Blood Pressure 132/63 123/68 Pulse Oximetry 99 98 Intake & Output 03/14/18 03/15/18 03/15/18 18:59 06:59 18:59 Intake Total 860 / 860 240 / 240 0 / 0 Output Total 1200 / 1200 950 / 950 Balance -340 / -340 -710 / -710 0 / 0 Weight 74.4 kg Intake: Oral 860 / 860 240 / 240 Intake (Blood Product) Amt 0 / 0 Rbc As-3 Leukoreduced Unit 0 / 0 [id number] Output: Urine 1200 / 1200 950 / 950 Other: Date of Last Bowel Movement 03/14/18 03/14/18 03/14/18 # Bowel Movements 1 Narrative: GENERAL: Patient sitting up in bed. Appears comfortable. Alert and oriented 3. SKIN: Warm and dry. HEAD: Normocephalic. EYES: No scleral icterus. No injection or drainage. NECK: Supple, trachea midline. No JVD CARDIOVASCULAR: Regular rate and rhythm without murmurs, gallops, or rubs. RESPIRATORY: Breath sounds equal bilaterally. No accessory muscle use. GASTROINTESTINAL: Abdomen soft, non-tender, nondistended. MUSCULOSKELETAL: No cyanosis, or edema. BACK: Nontender without obvious deformity. No CVA tenderness. Results - Labs CBC & Chem 7: 03/15/18 11:51 03/14/18 04:42 Laboratory Results - last 24 hr 03/13/18 03/14/18 03/14/18 11:28 04:42 04:42 WBC 11.5 H RBC 4.05 Hgb 8.3 L D Hct 26.6 L MCV 65.8 L D MCH 20.4 L MCHC 31.0 L RDW 31.1 H D Plt Count 302 MPV 8.9 Prelim Diff (Auto) Slide review pending Neut % (Auto) 72.9 H Lymph % (Auto) 15.0 [facility] % (Auto) 8.4 H Eos % (Auto) 2.9 Baso % (Auto) 0.8 Neut # (Auto) 8.4 H Lymph # (Auto) 1.7 [facility] # (Auto) 1.0 H Eos # (Auto) 0.3 Baso # (Auto) 0.1 WBC Differential . Diff Scan Auto diff confirmed Differential Comment . Platelet Estimate Normal Platelet Morphology Enlarged H Dimorphic RBCs Present H Basophilic Stippling Heavy H Sodium 139 Potassium 3.9 Chloride 103 D Carbon Dioxide 30.2 Anion Gap 6 BUN 14 Creatinine 0.69 Estimated GFR 82 L Random Glucose 82 Calcium 8.5 Total Bilirubin 0.8 AST 14 L ALT 14 Alkaline Phosphatase 81 Total Protein 6.2 L Albumin 2.8 L MTS Gel Crossmatch See Detail 03/14/18 03/14/18 03/15/18 14:18 22:09 02:12 WBC RBC Hgb 8.3 L 7.5 L 7.6 L Hct MCV MCH MCHC RDW Plt Count MPV Prelim Diff (Auto) Neut % (Auto) Lymph % (Auto) [facility] % (Auto) Eos % (Auto) Baso % (Auto) Neut # (Auto) Lymph # (Auto) [facility] # (Auto) Eos # (Auto) Baso # (Auto) WBC Differential Diff Scan Differential Comment Platelet Estimate Platelet Morphology Dimorphic RBCs Basophilic Stippling Sodium Potassium Chloride Carbon Dioxide Anion Gap BUN Creatinine Estimated GFR Random Glucose Calcium Total Bilirubin AST ALT Alkaline Phosphatase Total Protein Albumin MTS Gel Crossmatch 03/15/18 03/15/18 11:51 12:09 WBC RBC Hgb 8.4 L Hct MCV MCH MCHC RDW Plt Count MPV Prelim Diff (Auto) Neut % (Auto) Lymph % (Auto) [facility] % (Auto) Eos % (Auto) Baso % (Auto) Neut # (Auto) Lymph # (Auto) [facility] # (Auto) Eos # (Auto) Baso # (Auto) WBC Differential Diff Scan Differential Comment Platelet Estimate Platelet Morphology Dimorphic RBCs Basophilic Stippling Sodium Potassium Chloride Carbon Dioxide Anion Gap BUN Creatinine Estimated GFR Random Glucose Calcium Total Bilirubin AST ALT Alkaline Phosphatase Total Protein Albumin MTS Gel Crossmatch See Detail Assessment and Plan - Assessment (1) GI bleed Code(s): K92.2 - Gastrointestinal hemorrhage, unspecified Status: Acute (2) Acute exacerbation of chronic obstructive airways disease Code(s): J44.1 - Chronic obstructive pulmonary disease with (acute) exacerbation Status: Acute (3) Anemia Code(s): D64.9 - Anemia, unspecified Status: Acute (4) Elevated troponin Code(s): R74.8 - Abnormal levels of other serum enzymes Status: Acute - Plan 77-year-old female admitted secondary to hypoxia, COPD exacerbation, elevated troponin, acute blood loss anemia, and GI bleed //GI bleed //Acute blood loss anemia By history this is likely a slow bleed consult GI Clear liquids 2 units packed red blood cells ordered for transfusion on 03/13/2018 = Patient feels better after 2 units of PRBCs. Recheck hemoglobin every 8 hours. =-03/15. Hemoglobin down to 7.6. Due to elevated troponins, will transfuse to keep hemoglobin above 8.0. Continue to monitor. Plan for colonoscopy tomorrow. Appreciate GI assistance. //COPD exacerbation //Hypoxia Etiology for her exacerbation is likely correlated to anemia Duo nebs as needed Oxygen as needed Avoid steroids due to risk of ulcer = Shortness of breath has resolved. This is likely secondary to anemia //Elevated troponin May be secondary to degree of anemia Follow troponins Follow serial EKGs No cardiac symptoms Blood transfusion as above Consider cardiology consult for any upper transient troponin or cardiac symptoms = Repeat EKG. Appears to be no change since 2013. Patient denies chest pain. = Troponin elevated to 0.41. Patient denies any chest pain. Considered cardiology evaluation currently, however due to what appears to be a GI bleed no intervention would be possible at this time //Hypertension Continue baseline treatment Follow blood pressures Adjust treatments as needed //Gastroesophageal reflux disease //Osteoporosis No change to baseline treatments Follow clinically //DVT prophylaxis SCDs Discharge Planning: Pending GI clearance. (3) Anemia Qualifiers: Anemia type: unspecified type Qualified Code(s): D64.9 - Anemia, unspecified
--- NOTE | 2018-03-15 15:55 | P.PNGI ---
Subjective Interval history: Pt is sitting up in bed doing good, receiving blood. States there was a small amount of blood in stools today. <Mian Wong - Last Filed: 03/15/18 15:51> Physical Exam Vital signs: Vital Signs 03/14/18 16:00 03/14/18 17:00 03/14/18 18:00 Temperature Pulse Rate 66 74 76 Respiratory Rate Blood Pressure Pulse Oximetry 03/14/18 19:00 03/14/18 19:13 03/14/18 19:38 Temperature 98.8 F Pulse Rate 74 76 77 Respiratory Rate 20 20 Blood Pressure 125/77 Pulse Oximetry 99 99 03/14/18 20:00 03/14/18 20:58 03/14/18 21:00 Temperature Pulse Rate 67 64 Respiratory Rate Blood Pressure Pulse Oximetry 99 03/14/18 22:00 03/14/18 23:00 03/15/18 00:00 Temperature Pulse Rate 65 62 58 L Respiratory Rate Blood Pressure Pulse Oximetry 03/15/18 01:00 03/15/18 02:00 03/15/18 03:00 Temperature Pulse Rate 61 64 61 Respiratory Rate Blood Pressure Pulse Oximetry 03/15/18 04:00 03/15/18 05:00 03/15/18 06:00 Temperature Pulse Rate 60 68 62 Respiratory Rate Blood Pressure Pulse Oximetry 03/15/18 07:00 03/15/18 07:41 03/15/18 08:00 Temperature 97.8 F Pulse Rate 68 64 Respiratory Rate 20 Blood Pressure 149/65 H Pulse Oximetry 96 98 99 03/15/18 09:00 03/15/18 10:00 03/15/18 11:00 Temperature 97.8 F Pulse Rate 72 70 82 Respiratory Rate 18 Blood Pressure 132/63 Pulse Oximetry 99 03/15/18 11:04 03/15/18 12:00 03/15/18 12:39 Temperature 98.4 F Pulse Rate 66 67 69 Respiratory Rate 18 Blood Pressure 123/68 Pulse Oximetry 98 03/15/18 13:00 03/15/18 14:00 03/15/18 15:00 Temperature Pulse Rate 62 56 L 66 Respiratory Rate Blood Pressure Pulse Oximetry Intake & Output 03/14/18 03/15/18 03/15/18 18:59 06:59 18:59 Intake Total 860 / 860 240 / 240 0 / 0 Output Total 1200 / 1200 950 / 950 Balance -340 / -340 -710 / -710 0 / 0 Weight 74.4 kg Intake: Oral 860 / 860 240 / 240 Intake (Blood Product) Amt 0 / 0 Rbc As-3 Leukoreduced Unit 0 / 0 [id number] Output: Urine 1200 / 1200 950 / 950 Other: Date of Last Bowel Movement 03/14/18 03/14/18 03/14/18 # Bowel Movements 1 - Constitutional no acute distress - Routine HEENT Exam Head: Present: normocephalic ENT: Present: mucous membranes moist - Routine Respiratory Exam Present: CTA bilaterally - Routine Cardiovascular Exam Present: RRR - Routine Abdominal Exam Present: soft, normoactive bowel sounds. Absent: tenderness - Routine Extremities Exam Absent: cyanosis, clubbing - Routine Skin Exam Present: intact, dry - Routine Neurological Exam Present: alert, oriented X3 <Mian Wong - Last Filed: 03/15/18 15:51> Vital signs: Vital Signs 03/14/18 17:00 03/14/18 18:00 03/14/18 19:00 Temperature Pulse Rate 74 76 74 Respiratory Rate Blood Pressure Pulse Oximetry 03/14/18 19:13 03/14/18 19:38 03/14/18 20:00 Temperature 98.8 F Pulse Rate 76 77 67 Respiratory Rate 20 20 Blood Pressure 125/77 Pulse Oximetry 99 99 03/14/18 20:58 03/14/18 21:00 03/14/18 22:00 Temperature Pulse Rate 64 65 Respiratory Rate Blood Pressure Pulse Oximetry 99 03/14/18 23:00 03/15/18 00:00 03/15/18 01:00 Temperature Pulse Rate 62 58 L 61 Respiratory Rate Blood Pressure Pulse Oximetry 03/15/18 02:00 03/15/18 03:00 03/15/18 04:00 Temperature Pulse Rate 64 61 60 Respiratory Rate Blood Pressure Pulse Oximetry 03/15/18 05:00 03/15/18 06:00 03/15/18 07:00 Temperature 97.8 F Pulse Rate 68 62 68 Respiratory Rate 20 Blood Pressure 149/65 H Pulse Oximetry 96 03/15/18 07:41 03/15/18 08:00 03/15/18 09:00 Temperature Pulse Rate 64 72 Respiratory Rate Blood Pressure Pulse Oximetry 98 99 03/15/18 10:00 03/15/18 11:00 03/15/18 11:04 Temperature 97.8 F Pulse Rate 70 82 66 Respiratory Rate 18 Blood Pressure 132/63 Pulse Oximetry 99 03/15/18 12:00 03/15/18 12:39 03/15/18 13:00 Temperature 98.4 F Pulse Rate 67 69 62 Respiratory Rate 18 Blood Pressure 123/68 Pulse Oximetry 98 03/15/18 14:00 03/15/18 15:00 03/15/18 16:00 Temperature 97.9 F Pulse Rate 56 L 66 80 Respiratory Rate 20 Blood Pressure 137/64 Pulse Oximetry 100 Intake & Output 03/14/18 03/15/18 03/15/18 18:59 06:59 18:59 Intake Total 860 / 860 240 / 240 0 / 0 Output Total 1200 / 1200 950 / 950 Balance -340 / -340 -710 / -710 0 / 0 Weight 74.4 kg Intake: Oral 860 / 860 240 / 240 Intake (Blood Product) Amt 0 / 0 Rbc As-3 Leukoreduced Unit 0 / 0 [id number] Output: Urine 1200 / 1200 950 / 950 Other: Date of Last Bowel Movement 03/14/18 03/14/18 03/14/18 # Bowel Movements 1 <Nadine Noriega - Last Filed: 03/15/18 16:48> Results - Labs CBC & Chem 7: 03/15/18 11:51 03/14/18 04:42 Laboratory Results - last 24 hr 03/13/18 03/14/18 03/14/18 11:28 04:42 04:42 WBC 11.5 H RBC 4.05 Hgb 8.3 L D Hct 26.6 L MCV 65.8 L D MCH 20.4 L MCHC 31.0 L RDW 31.1 H D Plt Count 302 MPV 8.9 Prelim Diff (Auto) Slide review pending Neut % (Auto) 72.9 H Lymph % (Auto) 15.0 [facility] % (Auto) 8.4 H Eos % (Auto) 2.9 Baso % (Auto) 0.8 Neut # (Auto) 8.4 H Lymph # (Auto) 1.7 [facility] # (Auto) 1.0 H Eos # (Auto) 0.3 Baso # (Auto) 0.1 WBC Differential . Diff Scan Auto diff confirmed Differential Comment . Platelet Estimate Normal Platelet Morphology Enlarged H Dimorphic RBCs Present H Basophilic Stippling Heavy H Sodium 139 Potassium 3.9 Chloride 103 D Carbon Dioxide 30.2 Anion Gap 6 BUN 14 Creatinine 0.69 Estimated GFR 82 L Random Glucose 82 Calcium 8.5 Total Bilirubin 0.8 AST 14 L ALT 14 Alkaline Phosphatase 81 Total Protein 6.2 L Albumin 2.8 L MTS Gel Crossmatch See Detail 03/14/18 03/14/18 03/15/18 14:18 22:09 02:12 WBC RBC Hgb 8.3 L 7.5 L 7.6 L Hct MCV MCH MCHC RDW Plt Count MPV Prelim Diff (Auto) Neut % (Auto) Lymph % (Auto) [facility] % (Auto) Eos % (Auto) Baso % (Auto) Neut # (Auto) Lymph # (Auto) [facility] # (Auto) Eos # (Auto) Baso # (Auto) WBC Differential Diff Scan Differential Comment Platelet Estimate Platelet Morphology Dimorphic RBCs Basophilic Stippling Sodium Potassium Chloride Carbon Dioxide Anion Gap BUN Creatinine Estimated GFR Random Glucose Calcium Total Bilirubin AST ALT Alkaline Phosphatase Total Protein Albumin MTS Gel Crossmatch 03/15/18 03/15/18 11:51 12:09 WBC RBC Hgb 8.4 L Hct MCV MCH MCHC RDW Plt Count MPV Prelim Diff (Auto) Neut % (Auto) Lymph % (Auto) [facility] % (Auto) Eos % (Auto) Baso % (Auto) Neut # (Auto) Lymph # (Auto) [facility] # (Auto) Eos # (Auto) Baso # (Auto) WBC Differential Diff Scan Differential Comment Platelet Estimate Platelet Morphology Dimorphic RBCs Basophilic Stippling Sodium Potassium Chloride Carbon Dioxide Anion Gap BUN Creatinine Estimated GFR Random Glucose Calcium Total Bilirubin AST ALT Alkaline Phosphatase Total Protein Albumin MTS Gel Crossmatch See Detail <Mian Wong - Last Filed: 03/15/18 15:51> - Labs CBC & Chem 7: 03/15/18 11:51 03/14/18 04:42 Laboratory Results - last 24 hr 03/13/18 03/14/18 03/14/18 11:28 04:42 04:42 WBC 11.5 H RBC 4.05 Hgb 8.3 L D Hct 26.6 L MCV 65.8 L D MCH 20.4 L MCHC 31.0 L RDW 31.1 H D Plt Count 302 MPV 8.9 Prelim Diff (Auto) Slide review pending Neut % (Auto) 72.9 H Lymph % (Auto) 15.0 [facility] % (Auto) 8.4 H Eos % (Auto) 2.9 Baso % (Auto) 0.8 Neut # (Auto) 8.4 H Lymph # (Auto) 1.7 [facility] # (Auto) 1.0 H Eos # (Auto) 0.3 Baso # (Auto) 0.1 WBC Differential . Diff Scan Auto diff confirmed Differential Comment . Platelet Estimate Normal Platelet Morphology Enlarged H Dimorphic RBCs Present H Basophilic Stippling Heavy H Sodium 139 Potassium 3.9 Chloride 103 D Carbon Dioxide 30.2 Anion Gap 6 BUN 14 Creatinine 0.69 Estimated GFR 82 L Random Glucose 82 Calcium 8.5 Total Bilirubin 0.8 AST 14 L ALT 14 Alkaline Phosphatase 81 Total Protein 6.2 L Albumin 2.8 L MTS Gel Crossmatch See Detail 03/14/18 03/14/18 03/15/18 14:18 22:09 02:12 WBC RBC Hgb 8.3 L 7.5 L 7.6 L Hct MCV MCH MCHC RDW Plt Count MPV Prelim Diff (Auto) Neut % (Auto) Lymph % (Auto) [facility] % (Auto) Eos % (Auto) Baso % (Auto) Neut # (Auto) Lymph # (Auto) [facility] # (Auto) Eos # (Auto) Baso # (Auto) WBC Differential Diff Scan Differential Comment Platelet Estimate Platelet Morphology Dimorphic RBCs Basophilic Stippling Sodium Potassium Chloride Carbon Dioxide Anion Gap BUN Creatinine Estimated GFR Random Glucose Calcium Total Bilirubin AST ALT Alkaline Phosphatase Total Protein Albumin MTS Gel Crossmatch 03/15/18 03/15/18 11:51 12:09 WBC RBC Hgb 8.4 L Hct MCV MCH MCHC RDW Plt Count MPV Prelim Diff (Auto) Neut % (Auto) Lymph % (Auto) [facility] % (Auto) Eos % (Auto) Baso % (Auto) Neut # (Auto) Lymph # (Auto) [facility] # (Auto) Eos # (Auto) Baso # (Auto) WBC Differential Diff Scan Differential Comment Platelet Estimate Platelet Morphology Dimorphic RBCs Basophilic Stippling Sodium Potassium Chloride Carbon Dioxide Anion Gap BUN Creatinine Estimated GFR Random Glucose Calcium Total Bilirubin AST ALT Alkaline Phosphatase Total Protein Albumin MTS Gel Crossmatch See Detail <Nadine Noriega - Last Filed: 03/15/18 16:48> Assessment and Plan - Plan - Profound anemia- On admission hemoglobin was 5.4. She is s/p 3 unit of blood , hgb today 8.4 Had small amount of bleed today Pt denies previous hx of GI bleed. States she noticed rectal bleed few days ago for few days, which she attributed to hemorrhoids due to forcing herself to go. States she used to be regular but now having constipation, she attributes to medications she is on. No more bleeding for few days now. Endorses gradual wt loss over the past yrs, states she used to weigh 200 lbs, her appetite has been poor. She reports stools have tested positive for blood. States she normally has heart burn once a month, but the heart burn was severe when she came to the hospital. Denies ever having EGD/colonoscopy before. She takes ASA, no frequent use of NSAIDs. Denies nausea, vomiting, hematemesis, diarrhea or melena. - Wt loss/poor appetite - Heart burn - Constipation - COPD exacerbation- - history of COPD on O2 at home, per attending Plan: - Clears - EGD/colonoscopy on Friday - Golytely today - NPO mn - Monitor hh - Transfuse as needed - Cont. Bowel regimen - Cont. protonix - CT of a/P today - Supportive care - Pt seen and examined by Dr. Noriega and myself and this note is written on her behalf. <Mian Wong - Last Filed: 03/15/18 15:51> - Attending Attestation seen, examined agree with above <Nadine Noriega - Last Filed: 03/15/18 16:48>
[2018-03-15] MEDS ORDERED: PEG 3350/E-Lyte Soln 4000 ML Bottle PO ONE (16:00)
--- NOTE | 2018-03-15 16:51 | CT ---
EXAM DATE: 03/15/2018 4:45 PM EDT AGE/SEX: 77 years / Female INDICATIONS: Constipation, Blood in Stool, Anemia CLINICAL DATA: This is the patient's initial encounter. Patient reports that signs and symptoms have been present for 1 day and indicates a pain score of 0/10. MEDICAL/SURGICAL HISTORY: Osteoporosis. Gastroesophageal reflux disease. Chronic obstructive pulmonary disease. Hypertension Tubal ligation. ORAL CONTRAST: Prescribed oral contrast ingested. RADIATION DOSE: 14.73 CTDI (mGy) ; Patient positioning COMPARISON: No prior exams available for comparison. TECHNIQUE: Multiple contiguous axial images were obtained through the abdomen and pelvis following b olus infusion of 95ML ml Omnipaque 350 (iohexol) nonionic water-soluble contrast as a single exam d ose. Prescribed oral contrast ingested. Using automated exposure control and adjustment of the mA an d/or kV according to patient size, radiation dose was kept as low as reasonably achievable to obtain optimal diagnostic quality images. DICOM format image data is available electronically for review an d comparison. FINDINGS: Lower Lungs: Pleural thickening in both lung bases. Liver: The liver has a homogeneous density without space-occupying lesion. There is no dilation of th e biliary tree. The gallbladder is unremarkable. Spleen: Homogeneous density without enlargement. Pancreas: Unremarkable without mass or calcification. Kidneys: Normal in size and shape. No evidence of mass or hydronephrosis. Adrenal Glands: Unremarkable. Aorta: The aorta and proximal iliac vessels are grossly unremarkable without aneurysmal dilation. Bowel/Mesentery: The bowel loops are grossly unremarkable. The cecum and sigmoid colon have a normal configuration. Scattered diverticula involving the descending and sigmoid colon without inflammatory changes. The appendix is unremarkable. Abdominal Wall: Intact. Retroperitoneum: No evidence of adenopathy in the retrocrural, para-aortic, or deep pelvic regions. Bladder: Contours are smooth. Reproductive Organs: No abnormal masses or calcifications seen. Inguinal: The inguinal region is unremarkable without evidence of adenopathy. Bony Structures: Primary degenerative changes. CONCLUSION: 1. There is pleural thickening in both lung bases. 2. Scattered diverticula along the descending and sigmoid colon without inflammatory changes. 3. Otherwise, unremarkable exam for patient's age. Electronically signed by: Mark Aguilar MD 03/15/2018 4:50 PM EDT
[2018-03-16 06:59] LABS: Baso # (Auto) 0.1 th/mm3 (0.0-0.2); Baso % (Auto) 0.9 % (0.0-2.0); Eos # (Auto) 0.5 th/mm3 (0.0-0.4); Eos % (Auto) 5.7 % (0.0-4.0); Hematocrit 30.7 % (35.0-46.0); Hemoglobin 9.7 gm/dL (11.6-15.3); Lymph # (Auto) 1.4 th/mm3 (1.0-4.8); Lymph % (Auto) 17.1 % (9.0-44.0); Mean Corpuscular HGB Conc 31.5 % (32.0-36.0); Mean Corpuscular Hemoglobin 22.2 pg (27.0-34.0); Mean Corpuscular Volume 70.6 fL (80.0-100.0); Mean Platelet Volume 8.9 fL (7.0-11.0); Mono # (Auto) 0.8 th/mm3 (0.0-0.9); Mono % (Auto) 9.7 % (0.0-8.0); Neut # (Auto) 5.3 th/mm3 (1.8-7.7); Neut % (Auto) 66.6 % (16.0-70.0); Platelet Count 255 th/mm3 (150-450); Red Blood Count 4.35 mil/mm3 (4.00-5.30); White Blood Count 7.9 th/mm3 (4.0-11.0)
[2018-03-16 07:12] LABS: Albumin 2.8 g/dL (3.4-5.0); Anion Gap 7 meq/L (5-15); Blood Urea Nitrogen 12 mg/dL (7-18); Calcium 8.2 mg/dL (8.5-10.1); Carbon Dioxide 31.8 meq/L (21.0-32.0); Chloride 102 meq/L (98-107); Glomerular Filtration Rate Greater Than 89 mL/min (>89); Glucose,Random 68 mg/dL (74-106); Phosphorus 3.2 mg/dL (2.5-4.9); Potassium 3.8 meq/L (3.5-5.1); Sodium 141 meq/L (136-145)
[2018-03-16 08:27] LABS: Acanthocytes Occ; Ovalocytes 1+; Platelet Estimate Normal (Normal)
[2018-03-16] MEDS: dilTIAZem 30 MG Tablet PO SCH ×4 (08:28→21:02)
--- NOTE | 2018-03-16 10:46 | P.PNIM ---
Subjective Interval history: Patient says she is feeling all right. Denies any chest pain or shortness of breath. No more bloody bowel movements. Physical Exam Vital signs: Vital Signs 03/15/18 11:00 03/15/18 11:04 03/15/18 12:00 Temperature 97.8 F Pulse Rate 82 66 67 Respiratory Rate 18 Blood Pressure 132/63 Pulse Oximetry 99 03/15/18 12:39 03/15/18 13:00 03/15/18 14:00 Temperature 98.4 F Pulse Rate 69 62 56 L Respiratory Rate 18 Blood Pressure 123/68 Pulse Oximetry 98 03/15/18 15:00 03/15/18 16:00 03/15/18 17:00 Temperature 97.9 F Pulse Rate 66 61 68 Respiratory Rate 20 Blood Pressure 137/64 Pulse Oximetry 100 03/15/18 17:33 03/15/18 18:00 03/15/18 19:00 Temperature 97.9 F Pulse Rate 81 74 66 Respiratory Rate 18 Blood Pressure 137/64 Pulse Oximetry 100 03/15/18 20:00 03/15/18 21:00 03/15/18 22:00 Temperature Pulse Rate 66 60 50 L Respiratory Rate Blood Pressure Pulse Oximetry 96 03/15/18 23:00 03/16/18 00:00 03/16/18 01:00 Temperature Pulse Rate 62 58 L 52 L Respiratory Rate Blood Pressure Pulse Oximetry 03/16/18 02:00 03/16/18 03:00 03/16/18 04:00 Temperature Pulse Rate 58 L 60 59 L Respiratory Rate Blood Pressure Pulse Oximetry 03/16/18 05:00 03/16/18 06:00 03/16/18 07:41 Temperature Pulse Rate 57 L 63 Respiratory Rate Blood Pressure Pulse Oximetry 97 03/16/18 08:00 Temperature 98.0 F Pulse Rate 68 Respiratory Rate 22 Blood Pressure 143/58 H Pulse Oximetry 98 Intake & Output 03/15/18 03/16/18 03/16/18 18:59 06:59 18:59 Intake Total 880 / 880 620 / 620 Balance 880 / 880 620 / 620 Weight 74.3 kg Intake: Oral 480 / 480 620 / 620 Intake (Blood Product) Amt 400 / 400 Rbc As-3 Leukoreduced Unit 400 / 400 [id number] Other: # Voids 5 Date of Last Bowel Movement 03/14/18 03/16/18 03/16/18 Narrative: GENERAL: Patient sitting up in bed. Appears comfortable. Alert and oriented 3. Exam unchanged from yesterday. SKIN: Warm and dry. HEAD: Normocephalic. EYES: No scleral icterus. No injection or drainage. NECK: Supple, trachea midline. No JVD CARDIOVASCULAR: Regular rate and rhythm without murmurs, gallops, or rubs. RESPIRATORY: Breath sounds equal bilaterally. No accessory muscle use. GASTROINTESTINAL: Abdomen soft, non-tender, nondistended. MUSCULOSKELETAL: No cyanosis, or edema. BACK: Nontender without obvious deformity. No CVA tenderness. Results - Labs CBC & Chem 7: 03/16/18 05:44 03/16/18 05:44 Laboratory Results - last 24 hr 03/13/18 03/15/18 03/15/18 11:28 11:51 12:09 WBC RBC Hgb 8.4 L Hct MCV MCH MCHC RDW Plt Count MPV Prelim Diff (Auto) Neut % (Auto) Lymph % (Auto) [place] % (Auto) Eos % (Auto) Baso % (Auto) Neut # (Auto) Lymph # (Auto) [place] # (Auto) Eos # (Auto) Baso # (Auto) WBC Differential Diff Scan Differential Comment Platelet Estimate Platelet Morphology Ovalocytes Acanthocytes (Spur) Sodium Potassium Chloride Carbon Dioxide Anion Gap BUN Creatinine Estimated GFR Random Glucose Calcium Phosphorus Magnesium Albumin MTS Gel Crossmatch See Detail See Detail 03/16/18 03/16/18 05:44 05:44 WBC 7.9 RBC 4.35 Hgb 9.7 L Hct 30.7 L MCV 70.6 L D MCH 22.2 L MCHC 31.5 L RDW 33.0 H Plt Count 255 MPV 8.9 Prelim Diff (Auto) Slide review pending Neut % (Auto) 66.6 Lymph % (Auto) 17.1 Good[place] % (Auto) 9.7 H Eos % (Auto) 5.7 H Baso % (Auto) 0.9 Neut # (Auto) 5.3 Lymph # (Auto) 1.4 Good[place] # (Auto) 0.8 Eos # (Auto) 0.5 H Baso # (Auto) 0.1 WBC Differential . Diff Scan Auto diff confirmed Differential Comment . Platelet Estimate Normal Platelet Morphology Enlarged H Ovalocytes 1+ H Acanthocytes (Spur) Occ H Sodium 141 Potassium 3.8 Chloride 102 Carbon Dioxide 31.8 Anion Gap 7 BUN 12 Creatinine 0.59 Estimated GFR Greater than 89 Random Glucose 68 L Calcium 8.2 L Phosphorus 3.2 Magnesium 2.0 Albumin 2.8 L MTS Gel Crossmatch - Imaging Impressions Abdomen/Pelvis CT 03/15/18 00:00 CONCLUSION: 1. There is pleural thickening in both lung bases. 2. Scattered diverticula along the descending and sigmoid colon without inflammatory changes. 3. Otherwise, unremarkable exam for patient's age. Assessment and Plan - Assessment (1) GI bleed Code(s): K92.2 - Gastrointestinal hemorrhage, unspecified Status: Acute (2) Acute exacerbation of chronic obstructive airways disease Code(s): J44.1 - Chronic obstructive pulmonary disease with (acute) exacerbation Status: Acute (3) Anemia Code(s): D64.9 - Anemia, unspecified Status: Acute (4) Elevated troponin Code(s): R74.8 - Abnormal levels of other serum enzymes Status: Acute - Plan 77-year-old female admitted secondary to hypoxia, COPD exacerbation, elevated troponin, acute blood loss anemia, and GI bleed //GI bleed //Acute blood loss anemia By history this is likely a slow bleed consult GI Clear liquids 2 units packed red blood cells ordered for transfusion on 03/13/2018 = Patient feels better after 2 units of PRBCs. Recheck hemoglobin every 8 hours. =-03/15. Hemoglobin down to 7.6. Due to elevated troponins, will transfuse to keep hemoglobin above 8.0. Continue to monitor. Plan for colonoscopy tomorrow. Appreciate GI assistance. = 03/16. Hemoglobin relatively stable today. Pending EGD and colonoscopy today. Appreciate GI assistance. //COPD exacerbation //Hypoxia Etiology for her exacerbation is likely correlated to anemia Duo nebs as needed Oxygen as needed Avoid steroids due to risk of ulcer = Shortness of breath has resolved. This is likely secondary to anemia //Elevated troponin May be secondary to degree of anemia Follow troponins Follow serial EKGs No cardiac symptoms Blood transfusion as above Consider cardiology consult for any upper transient troponin or cardiac symptoms = Repeat EKG. Appears to be no change since 2013. Patient denies chest pain. = Troponin elevated to 0.41. Patient denies any chest pain. Considered cardiology evaluation currently, however due to what appears to be a GI bleed no intervention would be possible at this time = Patient continues to deny chest pain. //Hypertension Continue baseline treatment Follow blood pressures Adjust treatments as needed //Gastroesophageal reflux disease //Osteoporosis No change to baseline treatments Follow clinically //DVT prophylaxis SCDs Discharge Planning: EGD colonoscopy today. Pending GI clearance. If hemoglobin continues stable, possible discharge tomorrow. (3) Anemia Qualifiers: Anemia type: unspecified type Qualified Code(s): D64.9 - Anemia, unspecified
[2018-03-16] MEDS ORDERED: Lidocaine PF 1% Inj 5 ML Syringe INFILTRATN ONE (12:00)
--- NOTE | 2018-03-16 12:09 | GIPROC ---
[facility] [address] [facility]. [facility], [address] COLONOSCOPY PROCEDURE REPORT EXAM DATE: 03/16/2018 PATIENT NAME: Malinda Laura MR #: [id number] BIRTHDATE: 1940 ENDOSCOPIST: Maricel Ibrahim MD ORDER #: [id number] ACROBATIC DANCER: Christina Valenzuela and Abby Child STATUS: inpatient INDICATIONS: The patient is a 77 yr old female here for a colonoscopy due to PROCEDURE PERFORMED: Colonoscopy with polypectomy MEDICATIONS: None and Per Anesthesia. PREP QUALITY: good ESTIMATED BLOOD LOSS: None CONSENT: The patient understands the risks and benefits of the procedure and understands that these risks include, but are not limited to: sedation, allergic reaction, infection, perforation and/or bleeding. Alternative means of evaluation and treatment include, among others: physical exam, x-rays, and/or surgical intervention. The patient elects to proceed with this endoscopic procedure. medical equipment was checked for proper function. Hand hygiene and appropriate measures for infection prevention was taken. After the risks, benefits and alternatives of the procedure were thoroughly explained, Informed consent was verified, confirmed and timeout was successfully executed by the treatment team. A digital exam revealed no abnormalities of the rectum The EC-[id number] (Pedi C) endoscope was introduced through the anus and advanced to the terminal ileum which was intubated for a short distance. The instrument was then slowly withdrawn as the colon was fully examined. COLON FINDINGS: Dear diverticular disease throughout the colon, no active bleeding at this time. Large 1-1/2 cm polyp in the sigmoid removed by snare No sign of active bleeding or even old bleeding. Retroflexed views revealed no abnormalities The scope was then completely withdrawn from the patient and the procedure terminated. ADVERSE EVENTS: There were no complications. IMPRESSIONS: 1. Dear diverticular disease throughout the colon, no active bleeding at this time 2. Large 1-1/2 cm polyp in the sigmoid removed by snare No sign of active bleeding or even old bleeding 3. Retroflexed views revealed no abnormalities 4. Revealed no abnormalities of the rectum RECOMMENDATIONS: 1. Await biopsy results. Biopsy results will not be ready for 7-10 days. If you don't hear from us in two weeks, call our office for results. 2. Yearly hemoccult 3. May feed patient regular diet If anemia persist patient will need capsule endoscopy as an outpatient RECALL: Return 3 years Colonoscopy Maricel Ibrahim MD eSigned: Maricel Ibrahim MD 2018-03-16 12:09:[id number] cc: PATIENT NAME: Malinda Laura MR#: [id number]
--- NOTE | 2018-03-16 12:12 | GIPROC ---
[facility] [address] [facility]. [facility], [address] EGD PROCEDURE REPORT EXAM DATE: 03/16/2018 PATIENT NAME: Malinda Laura MR #: [id number] BIRTHDATE: 1940 ATTENDING: Maricel Ibrahim MD ORDER #: [id number] COLD ROLLER: Christina Valenzuela and Abby Child STATUS: inpatient INDICATIONS: The patient is a 77 yr old female here for an EGD due to iron deficiency anemia PROCEDURE PERFORMED: EGD w/ biopsy MEDICATIONS: None and Per Anesthesia. TOPICAL ANESTHETIC: none CONSENT: The patient understands the risks and benefits of the procedure and understands that these risks include, but are not limited to: sedation, allergic reaction, infection, perforation and/or bleeding. Alternative means of evaluation and treatment include, among others: physical exam, x-rays, and/or surgical intervention. The patient elects to proceed with this endoscopic procedure. medical equipment was checked for proper function. Hand hygiene and appropriate measures for infection prevention was taken. After the risks, benefits and alternatives of the procedure were thoroughly explained, Informed consent was verified, confirmed and timeout was successfully executed by the treatment team. The patient was anesthetized with topical anesthesia and the Pentax EC-3490Li endoscope was introduced through the mouth and advanced to the second portion of the duodenum. Retroflexed views revealed no abnormalities The gastroscope was then slowly withdrawn and removed. Minimal irritation of the stomach biopsy from the antrum to rule out H. pylori. The endoscopy was otherwise normal. ADVERSE EVENTS: There were no complications. IMPRESSIONS: 1. Minimal irritation of the stomach biopsy from the antrum to rule out H. pylori 2. Normal endoscopy otherwise 3. Retroflexed views revealed no abnormalities RECOMMENDATIONS: 1. Await biopsy results. Biopsy results will not be ready for 7-10 days. If you don't hear from us in two weeks, call our office for biopsy results. 2. Anti-reflux regimen 3. Avoid NSAIDS 4. Monitor hemoglobin and give packed RBC as needed PATIENT CONDITION: stable DISPOSITION: Inpatient REPEAT EXAM: Return as needed for EGD Maricel Ibrahim MD eSigned: Maricel Ibrahim MD 2018-03-16 12:12:00.991 cc:
[2018-03-17] MEDS: Acetaminophen 325 MG Tablet PO PRN (03:32)
[2018-03-17 05:52] LABS: Baso # (Auto) 0.1 th/mm3 (0.0-0.2); Baso % (Auto) 1.6 % (0.0-2.0); Eos # (Auto) 0.4 th/mm3 (0.0-0.4); Eos % (Auto) 5.6 % (0.0-4.0); Hematocrit 30.6 % (35.0-46.0); Hemoglobin 9.6 gm/dL (11.6-15.3); Lymph # (Auto) 1.5 th/mm3 (1.0-4.8); Lymph % (Auto) 22.1 % (9.0-44.0); Mean Corpuscular HGB Conc 31.2 % (32.0-36.0); Mean Corpuscular Hemoglobin 22.3 pg (27.0-34.0); Mean Corpuscular Volume 71.4 fL (80.0-100.0); Mean Platelet Volume 9.4 fL (7.0-11.0); Mono # (Auto) 0.7 th/mm3 (0.0-0.9); Mono % (Auto) 10.7 % (0.0-8.0); Neut # (Auto) 4.1 th/mm3 (1.8-7.7); Platelet Count 296 th/mm3 (150-450); Red Blood Count 4.29 mil/mm3 (4.00-5.30); Red Cell Distribution Width 33.8 % (11.6-17.2); White Blood Count 6.8 th/mm3 (4.0-11.0)
[2018-03-17 06:25] LABS: Albumin 2.9 g/dL (3.4-5.0); Calcium 8.3 mg/dL (8.5-10.1); Carbon Dioxide 30.3 meq/L (21.0-32.0); Magnesium 1.9 mg/dL (1.5-2.5); Phosphorus 3.5 mg/dL (2.5-4.9)
[2018-03-17 07:11] LABS: Acanthocytes Occ; Dimorphic RBC Present; Ovalocytes 1+
[2018-03-17 07:12] LABS: Platelet Estimate Normal (Normal)
[2018-03-17] MEDS: dilTIAZem 30 MG Tablet PO SCH ×2 (08:33→12:23)
[2018-03-17] MEDS ORDERED: Iron Sucrose Inj 100 MG/5 ML Vial IV.PUSH SCH (10:00)
--- NOTE | 2018-03-17 10:00 | P.PNIM ---
Subjective Interval history: Patient says she is feeling well. Denies any chest pain shortness of breath. Says she feels like going home. Denies any bloody bowel movements. Physical Exam Vital signs: Vital Signs 03/16/18 10:00 03/16/18 11:00 03/16/18 12:00 Temperature Pulse Rate 64 64 60 Respiratory Rate Blood Pressure Pulse Oximetry 03/16/18 12:22 03/16/18 13:00 03/16/18 14:00 Temperature 97.9 F Pulse Rate 68 70 Respiratory Rate 18 Blood Pressure 127/56 L Pulse Oximetry 100 03/16/18 15:00 03/16/18 15:46 03/16/18 16:00 Temperature 98.7 F Pulse Rate 77 91 H 68 Respiratory Rate 24 Blood Pressure 141/71 H Pulse Oximetry 93 L 03/16/18 17:00 03/16/18 17:42 03/16/18 18:00 Temperature Pulse Rate 58 L 60 Respiratory Rate Blood Pressure Pulse Oximetry 93 L 03/16/18 19:00 03/16/18 20:00 03/16/18 21:00 Temperature Pulse Rate 66 62 70 Respiratory Rate Blood Pressure Pulse Oximetry 99 03/16/18 22:00 03/16/18 23:00 03/17/18 00:00 Temperature Pulse Rate 58 L 66 64 Respiratory Rate 16 Blood Pressure Pulse Oximetry 03/17/18 01:00 03/17/18 02:00 03/17/18 03:00 Temperature Pulse Rate 67 57 L 63 Respiratory Rate Blood Pressure Pulse Oximetry 03/17/18 04:00 03/17/18 04:35 03/17/18 05:00 Temperature Pulse Rate 57 L 57 L Respiratory Rate 16 Blood Pressure Pulse Oximetry 03/17/18 06:00 03/17/18 07:00 03/17/18 08:00 Temperature Pulse Rate 55 L Respiratory Rate 16 Blood Pressure Pulse Oximetry 96 Intake & Output 03/16/18 03/17/18 03/17/18 18:59 06:59 18:59 Intake Total 960 / 960 480 / 480 Output Total 850 / 850 Balance 960 / 960 -370 / -370 Weight 74.3 kg Intake: Oral 960 / 960 480 / 480 Output: Urine 850 / 850 Other: # Voids 4 Date of Last Bowel Movement 03/16/18 03/16/18 # Bowel Movements 2 0 Narrative: GENERAL: Patient sitting up in bed. Appears comfortable. Alert and oriented 3. Exam unchanged . SKIN: Warm and dry. HEAD: Normocephalic. EYES: No scleral icterus. No injection or drainage. NECK: Supple, trachea midline. No JVD CARDIOVASCULAR: Regular rate and rhythm without murmurs, gallops, or rubs. RESPIRATORY: Breath sounds equal bilaterally. No accessory muscle use. GASTROINTESTINAL: Abdomen soft, non-tender, nondistended. MUSCULOSKELETAL: No cyanosis, or edema. BACK: Nontender without obvious deformity. No CVA tenderness. Results - Labs CBC & Chem 7: 03/17/18 05:07 03/17/18 05:07 Laboratory Results - last 24 hr 03/17/18 03/17/18 05:07 05:07 WBC 6.8 RBC 4.29 Hgb 9.6 L Hct 30.6 L MCV 71.4 L MCH 22.3 L MCHC 31.2 L RDW 33.8 H Plt Count 296 MPV 9.4 Prelim Diff (Auto) Slide review pending Neut % (Auto) 60.0 Lymph % (Auto) 22.1 [place] % (Auto) 10.7 H Eos % (Auto) 5.6 H Baso % (Auto) 1.6 Neut # (Auto) 4.1 Lymph # (Auto) 1.5 [place] # (Auto) 0.7 Eos # (Auto) 0.4 Baso # (Auto) 0.1 WBC Differential . Diff Scan Auto diff confirmed Differential Comment . Platelet Estimate Normal Platelet Morphology Enlarged H Dimorphic RBCs Present H Ovalocytes 1+ H Acanthocytes (Spur) Occ H Sodium 141 Potassium 4.0 Chloride 103 Carbon Dioxide 30.3 Anion Gap 8 BUN 14 Creatinine 0.84 Estimated GFR 66 L Random Glucose 75 Calcium 8.3 L Phosphorus 3.5 Magnesium 1.9 Albumin 2.9 L Assessment and Plan - Assessment (1) GI bleed Code(s): K92.2 - Gastrointestinal hemorrhage, unspecified Status: Acute (2) Acute exacerbation of chronic obstructive airways disease Code(s): J44.1 - Chronic obstructive pulmonary disease with (acute) exacerbation Status: Acute (3) Anemia Code(s): D64.9 - Anemia, unspecified Status: Acute (4) Elevated troponin Code(s): R74.8 - Abnormal levels of other serum enzymes Status: Acute - Plan 77-year-old female admitted secondary to hypoxia, COPD exacerbation, elevated troponin, acute blood loss anemia, and GI bleed //GI bleed //Acute blood loss anemia By history this is likely a slow bleed consult GI Clear liquids 2 units packed red blood cells ordered for transfusion on 03/13/2018 = Patient feels better after 2 units of PRBCs. Recheck hemoglobin every 8 hours. =-03/15. Hemoglobin down to 7.6. Due to elevated troponins, will transfuse to keep hemoglobin above 8.0. Continue to monitor. Plan for colonoscopy tomorrow. Appreciate GI assistance. = 03/16. Hemoglobin relatively stable today. Pending EGD and colonoscopy today. Appreciate GI assistance. = 03/17. Hemoglobin stable 9.6. Will continue off aspirin for now. Ferritin extremely low. Transfuse IV iron today. Discharge on p.o. iron, stool softener. Follow with primary care. Due to suspected coronary artery disease, elevated troponin on this admission, hopefully can start back on aspirin within a week if hemoglobin stable.. //COPD exacerbation //Hypoxia Etiology for her exacerbation is likely correlated to anemia Duo nebs as needed Oxygen as needed Avoid steroids due to risk of ulcer = Shortness of breath has resolved. This is likely secondary to anemia //Elevated troponin May be secondary to degree of anemia Follow troponins Follow serial EKGs No cardiac symptoms Blood transfusion as above Consider cardiology consult for any upper transient troponin or cardiac symptoms = Repeat EKG. Appears to be no change since 2013. Patient denies chest pain. = Troponin elevated to 0.41. Patient denies any chest pain. Considered cardiology evaluation currently, however due to what appears to be a GI bleed no intervention would be possible at this time = Patient continues to deny chest pain. = Likely demand related secondary to anemia. Will discharge home off of aspirin , hopefully can be restarted if hemoglobin is stable within a week. //Hypertension Continue baseline treatment Follow blood pressures Adjust treatments as needed //Gastroesophageal reflux disease //Osteoporosis No change to baseline treatments Follow clinically //DVT prophylaxis SCDs Discharge Planning: Diverticulosis on colonoscopy. Discharge home. Follow-up with primary care, gastroenterology as outpatient. (3) Anemia Qualifiers: Anemia type: unspecified type Qualified Code(s): D64.9 - Anemia, unspecified
--- NOTE | 2018-03-17 10:05 | P.DS ---
Date of admission: 03/13/18 08:44 Primary care physician: Rodney Dawn MD, R2 Brief History from admission: Mrs. Laura is a 77-year-old female. She has a history of COPD at baseline. She came to the hospital secondary to shortness of breath. Etiology was initially suspected to be COPD exacerbation. However she was found to have a hemoglobin of 5.4. This may be the primary cause of her shortness of breath. Troponin is slightly elevated but this could also be related to anemia. Her reports stools have tested positive for blood. Patient cannot recall any prior history of GI bleed. She does not complain of any abdominal pain. No other complaints at this time. DS: Diagnosis - Discharge Diagnosis (1) GI bleed Status: Acute (2) Acute exacerbation of chronic obstructive airways disease Status: Acute (3) Anemia Status: Acute (4) Elevated troponin Status: Acute DS: Summary Hospital Course: Patient was found to have troponin elevation up to 0.41 on admission, however denied chest pain. Marketed anemia with hemoglobin down to 5.3 on admission, improved with red blood cell transfusion. Aspirin was held, gastroenterology was consulted. EGD and colonoscopy shows diverticulosis without signs of acute bleeding. Hemoglobin eventually stable off of aspirin. We will continue to hold aspirin. Start patient on iron replacement and stool softener. Follow with primary care, and hopefully can start back on aspirin in the coming weeks. For problem based summary from most recent progress note, please see below. 77-year-old female admitted secondary to hypoxia, COPD exacerbation, elevated troponin, acute blood loss anemia, and GI bleed //GI bleed //Acute blood loss anemia By history this is likely a slow bleed consult GI Clear liquids 2 units packed red blood cells ordered for transfusion on 03/13/2018 = Patient feels better after 2 units of PRBCs. Recheck hemoglobin every 8 hours. =-03/15. Hemoglobin down to 7.6. Due to elevated troponins, will transfuse to keep hemoglobin above 8.0. Continue to monitor. Plan for colonoscopy tomorrow. Appreciate GI assistance. = 03/16. Hemoglobin relatively stable today. Pending EGD and colonoscopy today. Appreciate GI assistance. = 03/17. Hemoglobin stable 9.6. Will continue off aspirin for now. Ferritin extremely low. Transfuse IV iron today. Discharge on p.o. iron, stool softener. Follow with primary care. Due to suspected coronary artery disease, elevated troponin on this admission, hopefully can start back on aspirin within a week if hemoglobin stable.. //COPD exacerbation //Hypoxia Etiology for her exacerbation is likely correlated to anemia Duo nebs as needed Oxygen as needed Avoid steroids due to risk of ulcer = Shortness of breath has resolved. This is likely secondary to anemia //Elevated troponin May be secondary to degree of anemia Follow troponins Follow serial EKGs No cardiac symptoms Blood transfusion as above Consider cardiology consult for any upper transient troponin or cardiac symptoms = Repeat EKG. Appears to be no change since 2013. Patient denies chest pain. = Troponin elevated to 0.41. Patient denies any chest pain. Considered cardiology evaluation currently, however due to what appears to be a GI bleed no intervention would be possible at this time = Patient continues to deny chest pain. = Likely demand related secondary to anemia. Will discharge home off of aspirin , hopefully can be restarted if hemoglobin is stable within a week. //Hypertension Continue baseline treatment Follow blood pressures Adjust treatments as needed //Gastroesophageal reflux disease //Osteoporosis No change to baseline treatments Follow clinically //DVT prophylaxis SCDs Discharge Planning: Diverticulosis on colonoscopy. Discharge home. Follow-up with primary care, gastroenterology as outpatient. - Time Spent with Patient Total time spent providing and/or coordinating discharge services: Greater than 30 minutes - Quality: VTE Deep Vein Thrombosis/Pulmonary Embolism Present on Admission: No Exam Vital signs: Vital Signs 03/16/18 11:00 03/16/18 12:00 03/16/18 12:22 Temperature 97.9 F Pulse Rate 64 60 Respiratory Rate 18 Blood Pressure 127/56 L Pulse Oximetry 100 03/16/18 13:00 03/16/18 14:00 03/16/18 15:00 Temperature Pulse Rate 68 70 77 Respiratory Rate Blood Pressure Pulse Oximetry 03/16/18 15:46 03/16/18 16:00 03/16/18 17:00 Temperature 98.7 F Pulse Rate 91 H 68 58 L Respiratory Rate 24 Blood Pressure 141/71 H Pulse Oximetry 93 L 03/16/18 17:42 03/16/18 18:00 03/16/18 19:00 Temperature Pulse Rate 60 66 Respiratory Rate Blood Pressure Pulse Oximetry 93 L 03/16/18 20:00 03/16/18 21:00 03/16/18 22:00 Temperature Pulse Rate 62 70 58 L Respiratory Rate Blood Pressure Pulse Oximetry 99 03/16/18 23:00 03/17/18 00:00 03/17/18 01:00 Temperature Pulse Rate 66 64 67 Respiratory Rate 16 Blood Pressure Pulse Oximetry 03/17/18 02:00 03/17/18 03:00 03/17/18 04:00 Temperature Pulse Rate 57 L 63 57 L Respiratory Rate Blood Pressure Pulse Oximetry 03/17/18 04:35 03/17/18 05:00 03/17/18 06:00 Temperature Pulse Rate 57 L 55 L Respiratory Rate 16 Blood Pressure Pulse Oximetry 03/17/18 07:00 03/17/18 08:00 Temperature Pulse Rate Respiratory Rate 16 Blood Pressure Pulse Oximetry 96 Intake & Output 03/16/18 03/17/18 03/17/18 18:59 06:59 18:59 Intake Total 960 / 960 480 / 480 Output Total 850 / 850 Balance 960 / 960 -370 / -370 Weight 74.3 kg Intake: Oral 960 / 960 480 / 480 Output: Urine 850 / 850 Other: # Voids 4 Date of Last Bowel Movement 03/16/18 03/16/18 # Bowel Movements 2 0 Results Procedures completed during hospitalization: EGD/colonoscopy. Pending studies at discharge: Pending at discharge 03/16/18 07:43 Surgical [PTH] Routine Labs on day of discharge: Labs from last 24 hours 03/17/18 03/17/18 03/17/18 05:09 05:07 05:07 WBC 6.8 RBC 4.29 Hgb 9.6 L Hct 30.6 L MCV 71.4 L MCH 22.3 L MCHC 31.2 L RDW 33.8 H Plt Count 296 MPV 9.4 Prelim Diff (Auto) Slide review pending Neut % (Auto) 60.0 Lymph % (Auto) 22.1 [place] % (Auto) 10.7 H Eos % (Auto) 5.6 H Baso % (Auto) 1.6 Neut # (Auto) 4.1 Lymph # (Auto) 1.5 [place] # (Auto) 0.7 Eos # (Auto) 0.4 Baso # (Auto) 0.1 WBC Differential . Diff Scan Auto diff confirmed Differential Comment . Platelet Estimate Normal Platelet Morphology Enlarged H Dimorphic RBCs Present H Ovalocytes 1+ H Acanthocytes (Spur) Occ H Sodium 141 Potassium 4.0 Chloride 103 Carbon Dioxide 30.3 Anion Gap 8 BUN 14 Creatinine 0.84 Estimated GFR 66 L Random Glucose 75 Calcium 8.3 L Phosphorus 3.5 Magnesium 1.9 Iron Pending TIBC Pending % Saturation Pending Ferritin Pending Albumin 2.9 L - Impressions ITS Impressions Chest X-Ray 03/13/18 06:41 CONCLUSION: Slight cardiomegaly not significantly changed. Abdomen/Pelvis CT 03/15/18 00:00 CONCLUSION: 1. There is pleural thickening in both lung bases. 2. Scattered diverticula along the descending and sigmoid colon without inflammatory changes. 3. Otherwise, unremarkable exam for patient's age. Discharge Plan - Discharge Disposition Patient Disposition: 01 Discharge Home - Discharge Condition Condition: Fair - Discharge Order Discharge Orders: Discharge Order (Routine); Ordered 03/17/18 Ordered By: Dax Anguiano - Discharge Details Anticipated Discharge Date: 03/17/18 Discharge Comment: Okay to discharge home after iron infusion. - Physicians Team Primary Care Provider: Rodney Dawn Attending Provider: Dax Anguiano Other Providers: Nadine Noriega MD ; CBIT A/S,Between
[2018-03-17 10:10] LABS: % Iron Saturation 6.2 % (20-50)
[2018-03-17 11:57] VITALS: BP 162/78; RESP 22; TEMP 97.7; O2SAT 97
[2018-03-17 13:12] VITALS: PULSE 70
--- NOTE | 2018-03-17 13:24 | P.PNGI ---
Subjective Interval history: Pt in chair, RN at bedside removing telemetry leads, pt is waiting for ride to be discharged home Physical Exam Vital signs: Vital Signs 03/16/18 14:00 03/16/18 15:00 03/16/18 15:46 Temperature 98.7 F Pulse Rate 70 77 91 H Respiratory Rate 24 Blood Pressure 141/71 H Pulse Oximetry 93 L 03/16/18 16:00 03/16/18 17:00 03/16/18 17:42 Temperature Pulse Rate 68 58 L Respiratory Rate Blood Pressure Pulse Oximetry 93 L 03/16/18 18:00 03/16/18 19:00 03/16/18 20:00 Temperature Pulse Rate 60 66 62 Respiratory Rate Blood Pressure Pulse Oximetry 99 03/16/18 21:00 03/16/18 22:00 03/16/18 23:00 Temperature Pulse Rate 70 58 L 66 Respiratory Rate 16 Blood Pressure Pulse Oximetry 03/17/18 00:00 03/17/18 01:00 03/17/18 02:00 Temperature Pulse Rate 64 67 57 L Respiratory Rate Blood Pressure Pulse Oximetry 03/17/18 03:00 03/17/18 04:00 03/17/18 04:35 Temperature Pulse Rate 63 57 L Respiratory Rate 16 Blood Pressure Pulse Oximetry 03/17/18 05:00 03/17/18 06:00 03/17/18 07:00 Temperature 97.7 F Pulse Rate 57 L 55 L 63 Respiratory Rate 24 Blood Pressure 143/59 H Pulse Oximetry 96 03/17/18 08:00 03/17/18 09:00 03/17/18 10:00 Temperature Pulse Rate 62 58 L 72 Respiratory Rate Blood Pressure Pulse Oximetry 96 03/17/18 11:00 03/17/18 12:00 03/17/18 13:00 Temperature 97.7 F Pulse Rate 60 74 70 Respiratory Rate 22 Blood Pressure 162/78 H Pulse Oximetry 97 Intake & Output 03/16/18 03/17/18 03/17/18 18:59 06:59 18:59 Intake Total 960 / 960 480 / 480 Output Total 850 / 850 Balance 960 / 960 -370 / -370 Weight 74.3 kg Intake: Oral 960 / 960 480 / 480 Output: Urine 850 / 850 Other: # Voids 4 Date of Last Bowel Movement 03/16/18 03/16/18 # Bowel Movements 2 0 - Constitutional no acute distress - Routine HEENT Exam Head: Present: normocephalic, atraumatic - Routine Respiratory Exam Absent: accessory muscle use - Routine Abdominal Exam Present: soft, normoactive bowel sounds. Absent: tenderness, distended - Routine Skin Exam Present: dry, warm - Routine Neurological Exam Present: alert, oriented X3 Results - Labs CBC & Chem 7: 03/17/18 05:07 03/17/18 05:07 Laboratory Results - last 24 hr 03/17/18 03/17/18 03/17/18 05:07 05:07 05:09 WBC 6.8 RBC 4.29 Hgb 9.6 L Hct 30.6 L MCV 71.4 L MCH 22.3 L MCHC 31.2 L RDW 33.8 H Plt Count 296 MPV 9.4 Prelim Diff (Auto) Slide review pending Neut % (Auto) 60.0 Lymph % (Auto) 22.1 [place] % (Auto) 10.7 H Eos % (Auto) 5.6 H Baso % (Auto) 1.6 Neut # (Auto) 4.1 Lymph # (Auto) 1.5 [place] # (Auto) 0.7 Eos # (Auto) 0.4 Baso # (Auto) 0.1 WBC Differential . Diff Scan Auto diff confirmed Differential Comment . Platelet Estimate Normal Platelet Morphology Enlarged H Dimorphic RBCs Present H Ovalocytes 1+ H Acanthocytes (Spur) Occ H Sodium 141 Potassium 4.0 Chloride 103 Carbon Dioxide 30.3 Anion Gap 8 BUN 14 Creatinine 0.84 Estimated GFR 66 L Random Glucose 75 Calcium 8.3 L Phosphorus 3.5 Magnesium 1.9 Iron 23 L TIBC 370 % Saturation 6.2 L Ferritin 29 Albumin 2.9 L - Procedures EGD/colonoscopy. Assessment and Plan - Plan - Profound anemia- On admission hemoglobin was 5.4. She is s/p 3 unit of blood , hgb today 8.4 Had small amount of bleed today Pt denies previous hx of GI bleed. States she noticed rectal bleed few days ago for few days, which she attributed to hemorrhoids due to forcing herself to go. States she used to be regular but now having constipation, she attributes to medications she is on. No more bleeding for few days now. Endorses gradual wt loss over the past yrs, states she used to weigh 200 lbs, her appetite has been poor. She reports stools have tested positive for blood. States she normally has heart burn once a month, but the heart burn was severe when she came to the hospital. Denies ever having EGD/colonoscopy before. She takes ASA, no frequent use of NSAIDs. Denies nausea, vomiting, hematemesis, diarrhea or melena. - Wt loss/poor appetite - Heart burn - Constipation - COPD exacerbation- - history of COPD on O2 at home, per attending (03/17) Pt in bedside chair, RN at bedside preparing pt for discharge. S/P EGD and colonoscopy yesterday, results discussed with pt, advised follow up in office. H/H stable overnight. Pt with no GI complaints Colonoscopy --> Severe diverticular disease throughout the colon, no active bleeding at this time. Large 1-1/2 cm polyp in the sigmoid removed by snare. No sign of active bleeding or even old bleeding EGD --> Minimal irritation of the stomach biopsy from the antrum to rule out H. pylori. Normal endoscopy otherwise Plan: EGD and colon biopsy pending Avoid NSAIDs Protonix Have pt follow up with GI in office regarding biopsy results Pt has been seen and examined by myself and Dr. Ibrahim and this note is written on his behalf
== END 2018-03-17 13:24 | disposition home or self-care (01) ==
LOC: NEPE 06:07 → NEDA 08:44 → NEDH 12:23 → UNDODISIN 15:26 → HCIS 15:42
PROVIDERS: ADMIT Internal Medicine; ATTEND Internal Medicine
PROC: COLONOS (2018-03-16 11:35)
PROC: PANENDO (2018-03-16 11:35)